=== PATIENT | male | born 1960 | race Caucasian/White ===

== ENCOUNTER 2016-09-28 10:49 | Emergency (ER) | payer OTHER ==
[~2016-09-28] VITALS: Ht 180.3 cm; Wt 82.0 kg
[~2016-09-28 10:49] MED LIST: ENOX40P SQ; HYDR10SO PO; Z.0.WALKERFRONT; Z.0.WHEELELR
[2016-09-28 10:52] VITALS: BP 152/115; PULSE 93; RESP 18; TEMP 98.1; O2SAT 99
--- NOTE | 2016-09-28 11:32 | PD ---
HPI Chief Complaint: Laceration/Skin Injury Time Seen by Provider: 11:32 Travel History International Travel<30 days: No Contact w/Intl Traveler<30days: No Traveled to known affect area: No History of Present Illness HPI 55-year-old male presents to the emergency Department with complaint of left index finger laceration that occurred this morning at approximately 3 or 4 AM December jacqueline shannon. Denies being up-to-date on his tetanus vaccination. Denies paresthesias, loss of sensation, decreased range of motion, decreased strength to the affected finger. Denies fever, chills, nausea, vomiting. Has applied pressure to control bleeding. Denies allergies. No other modifying factors or associated signs and symptoms. PFSH Past Medical History Arthritis: Yes Asthma: Yes ( A CHILD) Autoimmune Disease: No Bipolar Disorder: Yes Anxiety: No Depression: No Heart Rhythm Problems: No Cancer: No Cardiovascular Problems: No High Cholesterol: No Chemotherapy: No Chest Pain: No Congestive Heart Failure: No COPD: No Cerebrovascular Accident: No Diabetes: No Endocrine: No GERD: No Genitourinary: No Hiatal Hernia: No Immune Disorder: No Kidney Stones: No Musculoskeletal: No Neurologic: No Psychiatric: No Reproductive: No Respiratory: Yes Immunizations Current: Yes Migraines: No Radiation Therapy: No Renal Failure: No Seizures: No Sickle Cell Disease: No Sleep Apnea: No Thyroid Disease: No Ulcer: No Past Surgical History Abdominal Surgery: No AICD: No Arteriovenous Shunt: No Body Medical Devices: LEFT WRIST ORIF, LEFT ELBOW ORIF, LEFT ORBITAL REPAIR Cardiac Surgery: No Ear Surgery: No Endocrine Surgery: No Eye Surgery: Yes (LEFT ORBITAL REPAIR) Genitourinary Surgery: No Gynecologic Surgery: No Insulin Pump: No Joint Replacement: No Oral Surgery: No Pacemaker: No Thoracic Surgery: No Social History Alcohol Use: Yes Tobacco Use: Yes Substance Use: Yes (MARIJUANA) Allergies-Medications (Allergen,Severity, Reaction): Coded Allergies: No Known Allergies (Verified , 09/28/16) Reported Meds & Prescriptions Reported Meds & Active Scripts Active Keflex (Cephalexin) 500 Mg Cap 500 Mg PO Q8H 7 Days Review of Systems Except as stated in HPI: all other systems reviewed are Neg Physical Exam Narrative GENERAL: Well-nourished, well-developed male patient, in no acute distress SKIN: Warm and dry. Anterior aspects of left index finger with laceration in between the MCP and PIP joints; finger without erythema, edema; with full range of motion at all finger joints; sensory intact; less than 3 second cap refill; with good opposition. HEAD: Atraumatic. Normocephalic. EYES: Pupils equal and round. No scleral icterus. No injection or drainage. ENT: Mucosa pink and moist. Airway patent. NECK: Trachea midline. CARDIOVASCULAR: Regular rate. RESPIRATORY: No accessory muscle use. GASTROINTESTINAL: Flat. MUSCULOSKELETAL: No obvious deformities. No clubbing. No cyanosis. No edema. NEUROLOGICAL: Awake and alert. Oriented 3. No obvious cranial nerve deficits. Motor grossly within normal limits. Normal speech. PSYCHIATRIC: Appropriate mood and affect; insight and judgment normal. Data Data Last Documented VS Vital Signs Date Time Temp Pulse Resp B/P Pulse Ox O2 Delivery O2 Flow Rate FiO2 09/28/16 10:52 98.1 93 18 152/115 99 Orders Tetanus/Diphtheria Tox Adult (Tetanus/Di (09/28/16 11:45) Bupivacaine Pf 0.5% Inj (Marcaine Pf 0.5 (09/28/16 11:45) Lidocaine 1% Inj (50 Ml) (Xylocaine 1% I (09/28/16 11:45) MDM Medical Decision Making Medical Screen Exam Complete: Yes Emergency Medical Condition: Yes Medical Record Reviewed: Yes Differential Diagnosis Laceration, contusion, abrasion Narrative Course 55-year-old male with laceration to left index finger. See ARAMIS Hamlin's procedure note for laceration repair. Tetanus updated in the ER. Keflex and ibuprofen prescribed for home. Patient is medically cleared and stable for discharge. Discussed reasons to return to the emergency department. Instructed patient to follow up with primary care provider. Patient agrees with treatment plan. The patients vital signs are stable and the patient is stable for outpatient follow-up and treatment. Patient discharged home, stable and in no acute distress. Diagnosis Primary Impression: Laceration of finger of left hand Qualified Code: S61.219A - Laceration of finger of left hand, initial encounter Referrals: Primary Care Physician Patient Instructions: Care For Your Stitches (ED), Finger Laceration (ED), General Instructions Departure Forms: Tests/Procedures, Work Release Enter return to work date: Oct 01, 2016 Additional Instructions: Keep area clean and dry Limit left index finger activity to decrease risk of sutures coming undone Ibuprofen or Tylenol as directed and as needed for pain and inflammation Ice pack to area as needed to decrease pain Return to the emergency department or follow-up with her primary care provider in 7-10 days for suture removal Follow up with primary care provider Return to the emergency department immediately with worsening of symptoms, particularly if reddened streaks up or down the affected extremity from the suture site, fever, numbness/tingling in the affected extremity, loss of sensation in the affected extremity, severe swelling of the affected Med/Other Pt SpecificInfo: Prescription(s) given Scripts Cephalexin (Keflex)500 Mg Gpw194 Mg PO Q8H 7 Days Ref 0 Prov:Jenniffer Connor 09/28/16 Disposition: DISCHARGE HOME Condition: Stable Radha Mcneil Sep 28, 2016 11:32 sensation in the affected extremity, severe swelling of the affected Med/Other Pt SpecificInfo: Prescription(s) given Disposition: DISCHARGE HOME Condition: Stable Radha Mcneil Sep 28, 2016 11:32
[2016-09-28] MEDS ORDERED: BUPIVACAINE HCL PF 0.5% 10 ML VIAL INFIL ONE (11:45)
[2016-09-28] MEDS ORDERED: LIDOCAINE HCL 1% 50 ML VIAL INFIL ONE (11:45)
[2016-09-28] MEDS ORDERED: TETANUS/DIPHTHERIA TOXOID ADULT 0.5 ML VIAL IM ONE (11:45)
[2016-09-28] MEDS ORDERED: CEPH-460 PO (13:10)
--- NOTE | 2016-09-28 13:11 | PD ---
Physical Exam Date Seen by Provider: Sep 28, 2016 Time Seen by Provider: 13:09 Narrative I was asked by Radha Mcneil to repair laceration to the patient's left second finger. Please see her documentation for full history and physical. Data Data Last Documented VS Vital Signs Date Time Temp Pulse Resp B/P Pulse Ox O2 Delivery O2 Flow Rate FiO2 09/28/16 10:52 98.1 93 18 152/115 99 Orders Tetanus/Diphtheria Tox Adult (Tetanus/Di (09/28/16 11:45) Bupivacaine Pf 0.5% Inj (Marcaine Pf 0.5 (09/28/16 11:45) Lidocaine 1% Inj (50 Ml) (Xylocaine 1% I (09/28/16 11:45) MDM Medical Record Reviewed: Yes Supervised Visit with MAGDIEL: No Procedures Procedure Narrative LACERATION LOCATION: Left second finger LENGTH: 3 cm NUMBER OF STITCHES/SAMIR: 7 simple interrupted sutures REPAIR: The area of the laceration was prepped with Betadine and sterilely draped. The laceration was infiltrated with 1% lidocaine 0.5% Marcaine. The wound was copiously irrigated and explored without evidence of foreign body, tendon injury or neurovascular injury. The wound was closed using 4-0 Prolene. This was a single layer repair. A sterile dressing was applied. The patient was advised to keep the dressing clean and dry. Patient tolerated the procedure well. Diagnosis Primary Impression: Laceration of finger of left hand Qualified Code: S61.219A - Laceration of finger of left hand, initial encounter Referrals: Primary Care Physician Patient Instructions: General Instructions, Care For Your Stitches (ED), Finger Laceration (ED) Departure Forms: Work Release, Enter return to work date: Tests/Procedures Additional Instruction: Keep area clean and dry Limit left index finger activity to decrease risk of sutures coming undone Ibuprofen or Tylenol as directed and as needed for pain and inflammation Ice pack to area as needed to decrease pain Take antibiotic as directed until gone. This is $4 at [employer]. Return to the emergency department or follow-up with her primary care provider in 7-10 days for suture removal Follow up with primary care provider Return to the emergency department immediately with worsening of symptoms, particularly if reddened streaks up or down the affected extremity from the suture site, fever, numbness/tingling in the affected extremity, loss of sensation in the affected extremity, severe swelling of the affected Scripts Cephalexin (Keflex)500 Mg Qot027 Mg PO Q8H 7 Days Ref 0 Prov:Jenniffer Connor 09/28/16 Disposition: 01 DISCHARGE HOME Condition: Stable Jenniffer Connor Sep 28, 2016 13:11
== END 2016-09-28 13:20 | disposition home or self-care (01) ==
LOC: NEPB 10:49
DX: S61.211A Laceration without foreign body of left index finger without damage to nail, initial encounter (principal); J45.909 Unspecified asthma, uncomplicated; Z23 Encounter for immunization; Z72.0 Tobacco use; W26.0XXA Contact with knife, initial encounter; Y99.8 Other external cause status
CPT/HCPCS: 12002; 90471; 90714

== ENCOUNTER 2017-04-20 19:48 | Emergency (ER) | payer SELFPAY ==
[~2017-04-20] VITALS: Ht 271.8 cm; Wt 86.0 kg
[~2017-04-20 19:48] MED LIST changes: +CEPH-460 PO; -ENOX40P SQ; -HYDR10SO PO; -Z.0.WALKERFRONT; -Z.0.WHEELELR
[2017-04-20 19:51] VITALS: BP 149/91; PULSE 111; RESP 16; TEMP 100.2; O2SAT 95
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
[2017-04-20] MEDS ORDERED: SODIUM CHLOR 0.9% 1000 ML INJ 1,000 ML IV ONE (21:15)
[2017-04-20] MEDS ORDERED: DEXAMETHASONE SOD PHOS 4 MG/ML VIAL IV PUSH ONE (21:15)
[2017-04-20] MEDS ORDERED: KETOROLAC TROMETHAMINE 30 MG/ML (IVP) VIAL IV PUSH ONE (21:15)
[2017-04-20] MEDS ORDERED: AMPICILLIN-SULBACTAM INJ 1,500 MG in SODIUM CHLORIDE 0.9% INJ 100 ML IV ONE (21:15)
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
[2017-04-20] MEDS ORDERED: HYDR-3533 PO (21:45)
[2017-04-20] MEDS ORDERED: IBUP-232 PO (21:45)
[2017-04-20] MEDS ORDERED: AUGM875T3 PO (21:45)
[2017-04-20 22:06] VITALS: BP 135/87; TEMP 98.3
== END 2017-04-20 22:40 | disposition home or self-care (01) ==
LOC: NEPD 19:48
DX: S02.40CA Maxillary fracture, right side, initial encounter for closed fracture (principal); S02.40DA Maxillary fracture, left side, initial encounter for closed fracture; W22.8XXA Striking against or struck by other objects, initial encounter
CPT/HCPCS: 70450; 70486; 96361; 96365; 96375; 99285; J0295; J1100; J1885; J7030

== ENCOUNTER 2017-04-25 21:49 | Emergency (ER) | payer SELFPAY ==
[~2017-04-25 21:49] MED LIST changes: +AUGM875T3 PO; +HYDR-3533 PO; +IBUP-232 PO
[2017-04-25 21:50] VITALS: BP 166/94; PULSE 110; RESP 16; TEMP 100.8; O2SAT 100
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
[2017-04-26] MEDS ORDERED: IBUPROFEN 800 MG TAB ONE (02:36)
[2017-04-26] MEDS ORDERED: AZITHROMYCIN 250 MG TAB ONE (02:37)
[2017-04-26 02:46] VITALS: O2SAT 93
--- NOTE | 2017-04-26 02:58 | RADRPT ---
EXAM DATE/TIME: 04/26/2017 00:52 [place] COMPARISON: CHEST SINGLE AP, April 10, 2016, 21:28. INDICATIONS : Cough and congestion. MEDICAL HISTORY : None. SURGICAL HISTORY : None. ENCOUNTER: Initial ACUITY: 2 days PAIN SCORE: 3/10 LOCATION: Bilateral chest FINDINGS: PA and lateral views of the chest show bilateral interstitial infiltrates with a perihilar distributi on. Peribronchial thickening also observed particularly involving the left upper lobe. No effusions. Heart is normal in size. A degenerative spine. CONCLUSION: Bilateral perihilar interstitial infiltrates and peribronchial thickening suggesting viral pneumoniti siddhartha Croosk Jr., MD on April 26, 2017 at 1:11 Board Certified Radiologist. This report was verified electronically.
[2017-04-26 03:54] VITALS: BP 123/72; PULSE 85; RESP 18; TEMP 99.2; O2SAT 95
[2017-04-26 03:55] LABS: ALCOHOL LESS THAN 3 MG/DL (0-5)
[2017-04-26 04:19] LABS: AUTOMATED NEUTROPHIL # 9.7 TH/MM3 (1.8-7.7); BASOPHIL # 0.2 TH/MM3 (0-0.2); BASOPHIL % 1.7 % (0.0-2.0); EOSINOPHIL # 0.1 TH/MM3 (0-0.4); EOSINOPHIL % 0.9 % (0.0-4.0); HEMATOCRIT 36.5 % (39.0-51.0); HEMO FLAGS AUTO DIFF; LYMPH % 17.8 % (9.0-44.0); LYMPHOCYTE # 2.6 TH/MM3 (1.0-4.8); MEAN CELL VOLUME 89.5 FL (80.0-100.0); MEAN CORPUSCULAR HEMOGLOBIN 30.1 PG (27.0-34.0); MEAN CORPUSCULAR HGB CONC 33.7 % (32.0-36.0); MONO % 13.7 % (0.0-8.0); NEUT % 65.9 % (16.0-70.0); PLATELET COUNT 239 TH/MM3 (150-450); RED BLOOD COUNT 4.07 MIL/MM3 (4.50-5.90); RED CELL DISTRIBUTION WIDTH 14.4 % (11.6-17.2); WHITE BLOOD COUNT 14.7 TH/MM3 (4.0-11.0)
[2017-04-26 04:20] LABS: BANDS 2 % (0-6); NEUTROPHIL # MANUAL DIFF 9.4 TH/MM3 (1.8-7.7); POLYS (SEG NEUTROPHILS) 62 % (16-70)
[2017-04-26 04:23] LABS: PLATELET ESTIMATE SMEAR NORMAL (NORMAL); PLATELET MORPHOLOGY NORMAL (NORMAL); SCAN/DIFF FINAL DIFF MANUAL
[2017-04-26 04:24] LABS: ALKALINE PHOSPHATASE 68 U/L (45-117); ALT (GPT) 20 U/L (12-78); ANION GAP 9 MEQ/L (5-15); AST (GOT) 19 U/L (15-37); BICARBONATE 23.4 MEQ/L (21.0-32.0); BLOOD UREA NITROGEN 9 MG/DL (7-18); CHLORIDE 104 MEQ/L (98-107); GLOMERULAR FILTRATION RATE 105 ML/MIN (>89); POTASSIUM 3.4 MEQ/L (3.5-5.1); SODIUM (NA) 136 MEQ/L (136-145); TOTAL BILIRUBIN ADULT 0.5 MG/DL (0.2-1.0)
[2017-04-26] MEDS ORDERED: predniSONE 20 MG TAB PO ONE (04:30)
[2017-04-26] MEDS ORDERED: ALBU6.7H INH (04:42)
[2017-04-26] MEDS ORDERED: ZITH250T PO (04:42)
[2017-04-26] MEDS ORDERED: PRED-503 PO (04:42)
[2017-04-26 06:25] VITALS: BP 98/59; PULSE 68; RESP 16; TEMP 98.4; O2SAT 96
--- NOTE | 2017-04-26 15:42 | PD ---
Physical Exam Time Seen by Provider: 15:39 [facility]AM[facility] Paul has evaluated the patient and the patient will be discharged to follow-up at [facility] for detox. Data Data Last Documented VS Vital Signs Date Time Temp Pulse Resp B/P (MAP) Pulse Ox O2 Delivery O2 Flow Rate FiO2 04/26/17 14:26 04/26/17 06:25 98.4 68 16 96 Room Air 04/26/17 02:46 21 Orders Orders Chest, Pa & Lat (04/25/17 23:59) Psych Screen (04/26/17 00:09) Drug Screen, Random Urine (04/26/17 00:09) Alcohol (Ethanol) (04/26/17 00:09) Ibuprofen (Motrin) (04/26/17 02:36) Azithromycin (Zithromax) (04/26/17 02:37) Ceftriaxone Inj (Rocephin Inj) (04/26/17 02:37) Blood Culture (04/26/17 02:00) Blood Culture (04/26/17 01:45) Comprehensive Metabolic Panel (04/26/17 00:25) Complete Blood Count With Diff (04/26/17 01:45) Prednisone (Deltasone) (04/26/17 04:30) Diet Regular Basic (04/26/17 Breakfast) Labs Laboratory Tests Test 04/26/17 00:25 04/26/17 01:45 Blood Urea Nitrogen 9 MG/DL Creatinine 0.76 MG/DL Random Glucose 102 MG/DL Total Protein 6.9 GM/DL Albumin 2.6 GM/DL Calcium Level 8.3 MG/DL Alkaline Phosphatase 68 U/L Aspartate Amino Transf (AST/SGOT) 19 U/L Alanine Aminotransferase (ALT/SGPT) 20 U/L Total Bilirubin 0.5 MG/DL Sodium Level 136 MEQ/L Potassium Level 3.4 MEQ/L Chloride Level 104 MEQ/L Carbon Dioxide Level 23.4 MEQ/L Anion Gap 9 MEQ/L Estimat Glomerular Filtration Rate 105 ML/MIN Urine Opiates Screen NEG Urine Barbiturates Screen NEG Urine Amphetamines Screen NEG Urine Benzodiazepines Screen POS Urine Cocaine Screen POS Urine Cannabinoids Screen POS Ethyl Alcohol Level LESS THAN 3 MG/DL White Blood Count 14.7 TH/MM3 Red Blood Count 4.07 MIL/MM3 Hemoglobin 12.3 GM/DL Hematocrit 36.5 % Mean Corpuscular Volume 89.5 FL Mean Corpuscular Hemoglobin 30.1 PG Mean Corpuscular Hemoglobin Concent 33.7 % Red Cell Distribution Width 14.4 % Platelet Count 239 TH/MM3 Mean Platelet Volume 7.3 FL Neutrophils (%) (Auto) 65.9 % Lymphocytes (%) (Auto) 17.8 % Monocytes (%) (Auto) 13.7 % Eosinophils (%) (Auto) 0.9 % Basophils (%) (Auto) 1.7 % Neutrophils # (Auto) 9.7 TH/MM3 Lymphocytes # (Auto) 2.6 TH/MM3 Monocytes # (Auto) 2.0 TH/MM3 Eosinophils # (Auto) 0.1 TH/MM3 Basophils # (Auto) 0.2 TH/MM3 CBC Comment AUTO DIFF Neutrophils % (Manual) 62 % Band Neutrophils % 2 % Lymphocytes % 27 % Monocytes % 9 % Neutrophils # (Manual) 9.4 TH/MM3 Differential Comment FINAL DIFF MANUAL Atypical Lymphocytes % Platelet Estimate NORMAL Platelet Morphology Comment NORMAL Red Cell Morphology Comment NORMAL MDM Supervised Visit with [facility]: No Narrative Course [facility] Collins has evaluated the patient and the patient will be discharged home. Patient contracts safety. Denies suicidal or homicidal ideations. Patient will follow up [facility] for detox. Patient will be provided community resource packet to [facility] for follow-up. Has friends and family for support. Patient is medically cleared for discharge. Diagnosis Primary Impression: Medical clearance for psychiatric admission Additional Impressions: Malingering Polysubstance abuse interstitial pulmonary infiltrates Referrals: [facility] (Out patient) Primary Care Physician [facility] Patient Instructions: Community Acquired Pneumonia (ED), General Instructions, Polysubstance Abuse (ED) Additional Instruction: Contract safety to your self and others Stop using drugs Follow-up with psychiatry Follow-up with primary care provider [facility] Return to the emergency department immediately with worsening of symptoms Use Albuterol inhaler as prescribed Take oral steroids as prescribed and complete full course [id number] decongestants or antihistamines as directed and as needed for symptom management Your cough can last 4-6 weeks Drink plenty of fluids to prevent dehydration Use hot air humidifier to decrease cough exacerbation Turn off ceiling fans and sleep with head of bed elevated Avoid triggers such as second hand smoke, dust, known allergens Follow-up with your primary care provider Return to the emergency department immediately with worsening of symptoms Med/Other Pt SpecificInfo: Prescription(s) given Scripts Azithromycin (Zithromax) 250 Mg Tab 250 MG PO DIRECTED for Infection, #6 TAB 0 Refills Take 2 tabs (500 mg) on day 1 then 1 tab daily x 4 days. Prov: Bennett Beard MD 04/26/17 Albuterol 6.7 GM Inh (Proventil Hfa 6.7 GM Inh) 90 Mcg/Act Aer 1 PUFF INH Q4H Y for SHORTNESS OF BREATH, #1 INHALER 0 Refills Prov: Bennett Beard MD 04/26/17 Prednisone (Deltasone) 20 Mg Tab 20 MG PO TID for 5 Days, #90 TAB 0 Refills Prov: Bennett Beard MD 04/26/17 Disposition: 01 DISCHARGE HOME Condition: Stable Radha Mcneil Apr 26, 2017 15:42
--- NOTE | 2017-04-26 15:45 | PD ---
History of Present Illness Chief Complaint: Psychiatric Symptoms Time Seen by Provider: 15:50 Travel History International Travel<30 Days: No Contact w/Intl Traveler<30days: No Known affected area: No History of Present Illness: 56-year-old male presents with history of heroin abuse, stating he is suicidal unless he is treated for his multiyear history of drug abuse. Patient was seen at [facility] and they were "concerned" about his cold symptoms and told him to come to [place] for medical clearance. Patient states he loves life that he would rather be than live the way he has been. At the time of this physician's interview, the patient continues to report that he wants detox at [facility]. He also has a positive toxicology screen for benzodiazepines, cocaine and cannabis. He denies suicidal or homicidal ideation , plan or intent at this time. However, this physician feels the patient is highly manipulative and may act out if he does not feel he is getting his way. Still, this physician cannot provide adequate evaluation and treatment by giving into the patient's manipulations, despite the risks involved. Patient is not psychotic and should be responsible for his own actions. PFSH Past Medical History Arthritis: Yes Asthma: Yes ( A CHILD) Autoimmune Disease: No Bipolar Disorder: Yes Anxiety: No Depression: No Heart Rhythm Problems: No Cancer: No Cardiovascular Problems: No High Cholesterol: No Chemotherapy: No Chest Pain: No Congestive Heart Failure: No COPD: No Cerebrovascular Accident: No Diabetes: No Diminished Hearing: No Endocrine: No GERD: No Genitourinary: No Hiatal Hernia: No Immune Disorder: No Implanted Vascular Access Dvce: Yes Kidney Stones: No Musculoskeletal: No Neurologic: No Psychiatric: No Reproductive: No Respiratory: Yes Immunizations Current: Yes Migraines: No Radiation Therapy: No Renal Failure: No Seizures: No Sickle Cell Disease: No Sleep Apnea: No Thyroid Disease: No Ulcer: No Tetanus Vaccination: Unknown Influenza Vaccination: No Past Surgical History Abdominal Surgery: No AICD: No Arteriovenous Shunt: No Body Medical Devices: LEFT WRIST ORIF, LEFT ELBOW ORIF, LEFT ORBITAL REPAIR Cardiac Surgery: No Ear Surgery: No Endocrine Surgery: No Eye Surgery: Yes (LEFT ORBITAL REPAIR) Genitourinary Surgery: No Gynecologic Surgery: No Insulin Pump: No Joint Replacement: No Oral Surgery: No Pacemaker: No Thoracic Surgery: No Other Surgery: Yes Psychiatric History Psychiatric History Hx Psychiatric Treatment: DENIES History of Inpatient Treatment: No Guns or firearms in home: No Social History Hx Alcohol Use: Yes Hx Tobacco Use: Yes Hx Substance Use: Yes (POLYSUBSTANCE) Substance Use Type: Alcohol, Crack, Marijuana, Amphetamines-Stimulants, Prescription Medications, Benzos (Valium,Xanax), Heroin, Cocaine, Synth Opiates- Pain Pills Hx of Substance Use Treatment: No Allergies-Medications (Allergen,Severity, Reaction): Coded Allergies: No Known Allergies (Verified , 04/25/17) Reported Meds & Prescriptions Reported Meds & Active Scripts Active Zithromax (Azithromycin) 250 Mg Tab 250 Mg PO DIRECTED Take 2 tabs (500 mg) on day 1 then 1 tab daily x 4 days. Proventil Hfa 6.7 GM Inh (Albuterol Sulfate) 90 Mcg/Act Aer 1 Puff INH Q4H PRN Deltasone (Prednisone) 20 Mg Tab 20 Mg PO TID 5 Days Lortab (Hydrocodone-Acetaminophen) 5-325 Mg Tab 1 Tab PO Q6H PRN Ibuprofen 600 Mg Tab 600 Mg PO Q8HR PRN Augmentin (Amoxicillin-Clavulanate) 875-125 Mg Tab 1 Tab PO BID 10 Days Keflex (Cephalexin) 500 Mg Cap 500 Mg PO Q8H 7 Days Review of Systems Except as stated in HPI: all other systems reviewed are Neg Exam Alert: Yes [place]: Person, Place, Date, Situation Mood: Calm Affect: Appropriate Speech: Clear, Logical Eye Contact: Normal Memory Intact: Immediate, Recent, Remote Delusions: No Insight/Judgement Adequate adequate MDM Medical Decision Making Medical Record Reviewed: Yes Assessment/Plan Patient interviewed at bedside, medical record reviewed and case discussed with nurse, Muna. Patient continues to have significant issue with substance abuse problem. This physician feels it is important for the patient to take responsibility for his actions and to seek drug rehabilitation as opposed to psychiatric admission. Patient's threats of suicidality aren't ongoing risk but are unpredictable and unavoidable. This physician is recommending the patient go to [facility] for further treatment and the patient agrees. We are providing him with bus passes. Orders Orders Chest, Pa & Lat (04/25/17 23:59) Psych Screen (04/26/17 00:09) Drug Screen, Random Urine (04/26/17 00:09) Alcohol (Ethanol) (04/26/17 00:09) Ibuprofen (Motrin) (04/26/17 02:36) Azithromycin (Zithromax) (04/26/17 02:37) Ceftriaxone Inj (Rocephin Inj) (04/26/17 02:37) Blood Culture (04/26/17 02:00) Blood Culture (04/26/17 01:45) Comprehensive Metabolic Panel (04/26/17 00:25) Complete Blood Count With Diff (04/26/17 01:45) Prednisone (Deltasone) (04/26/17 04:30) Diet Regular Basic (04/26/17 Breakfast) Results Vital Signs Date Time Temp Pulse Resp B/P (MAP) Pulse Ox O2 Delivery O2 Flow Rate FiO2 04/26/17 14:26 04/26/17 06:25 98.4 68 16 98/59 (72) 96 Room Air 04/26/17 03:57 18 04/26/17 03:54 99.2 85 18 123/72 (89) 95 Room Air 04/26/17 02:46 93 21 04/25/17 23:49 16 04/25/17 21:50 100.8 110 16 166/94 (118) 100 Laboratory Tests Test 04/26/17 00:25 04/26/17 01:45 Blood Urea Nitrogen 9 Creatinine 0.76 Random Glucose 102 Total Protein 6.9 Albumin 2.6 Calcium Level 8.3 Alkaline Phosphatase 68 Aspartate Amino Transf (AST/SGOT) 19 Alanine Aminotransferase (ALT/SGPT) 20 Total Bilirubin 0.5 Sodium Level 136 Potassium Level 3.4 Chloride Level 104 Carbon Dioxide Level 23.4 Anion Gap 9 Estimat Glomerular Filtration Rate 105 Urine Opiates Screen NEG Urine Barbiturates Screen NEG Urine Amphetamines Screen NEG Urine Benzodiazepines Screen POS Urine Cocaine Screen POS Urine Cannabinoids Screen POS Ethyl Alcohol Level LESS THAN 3 White Blood Count 14.7 Red Blood Count 4.07 Hemoglobin 12.3 Hematocrit 36.5 Mean Corpuscular Volume 89.5 Mean Corpuscular Hemoglobin 30.1 Mean Corpuscular Hemoglobin Concent 33.7 Red Cell Distribution Width 14.4 Platelet Count 239 Mean Platelet Volume 7.3 Neutrophils (%) (Auto) 65.9 Lymphocytes (%) (Auto) 17.8 Monocytes (%) (Auto) 13.7 Eosinophils (%) (Auto) 0.9 Basophils (%) (Auto) 1.7 Neutrophils # (Auto) 9.7 Lymphocytes # (Auto) 2.6 Monocytes # (Auto) 2.0 Eosinophils # (Auto) 0.1 Basophils # (Auto) 0.2 CBC Comment AUTO DIFF Neutrophils % (Manual) 62 Band Neutrophils % 2 Lymphocytes % 27 Monocytes % 9 Neutrophils # (Manual) 9.4 Differential Comment FINAL DIFF MANUAL Atypical Lymphocytes Platelet Estimate NORMAL Platelet Morphology Comment NORMAL Red Cell Morphology Comment NORMAL Date/Time Source Procedure Growth Status 04/26/17 02:00 Blood Peripheral Aerobic Blood Culture Pending Received 04/26/17 02:00 Blood Peripheral Anaerobic Blood Culture Pending Received Diagnosis Primary Impression: Cocaine abuse Additional Impressions: Benzodiazepine abuse Cannabis abuse Prescriptions Azithromycin (Zithromax) 250 Mg Tab 250 MG PO DIRECTED for Infection, #6 TAB 0 Refills Take 2 tabs (500 mg) on day 1 then 1 tab daily x 4 days. Prov: Bennett Beard MD 04/26/17 Albuterol 6.7 GM Inh (Proventil Hfa 6.7 GM Inh) 90 Mcg/Act Aer 1 PUFF INH Q4H Y for SHORTNESS OF BREATH, #1 INHALER 0 Refills Prov: Bennett Beard MD 04/26/17 Prednisone (Deltasone) 20 Mg Tab 20 MG PO TID for 5 Days, #90 TAB 0 Refills Prov: Bennett Beard MD 04/26/17 Condition: Stable Problem Qualifiers Elias Harvey MD Apr 26, 2017 15:45
[2017-04-26 16:00] VITALS: BP 102/68; TEMP 98.2
== END 2017-04-26 16:07 | disposition home or self-care (01) ==
LOC: NEPD 21:49 → NEPJ 04-26 16:07
DX: F14.10 Cocaine abuse, uncomplicated (principal); F12.10 Cannabis abuse, uncomplicated; F13.10 Sedative, hypnotic or anxiolytic abuse, uncomplicated; R91.8 Other nonspecific abnormal finding of lung field; Z72.0 Tobacco use; Z59.0 Homelessness
CPT/HCPCS: 71020; 80053; 80307; 85007; 85027; 87040; 94640; 94664; 96365; 99284; J0696; J7512

== ENCOUNTER 2017-05-08 01:25 | Emergency (ER) | payer SELFPAY ==
[~2017-05-08] VITALS: Ht 180.3 cm; Wt 88.0 kg
[~2017-05-08 01:25] MED LIST changes: +ALBU6.7H INH; +PRED-503 PO; +ZITH250T PO
[2017-05-08 01:28] VITALS: BP 116/79; PULSE 103; RESP 16; TEMP 98.5; O2SAT 98
--- NOTE | 2017-05-08 02:48 | PD ---
HPI Chief Complaint: Alcohol/Drug Intoxication Time Seen by Provider: 02:42 Travel History International Travel<30 days: No Contact w/Intl Traveler<30days: No Traveled to known affect area: No History of Present Illness HPI 56-year-old white male presents to emergency department stating that he feels that he may have snorted some heroin that may been adulterated. He states that he had been living in a sober living facility and relapsed. He states that he felt hot and flushed all over. He had some dizziness and some blurred vision but that did resolve. PFSH Past Medical History Arthritis: Yes Asthma: Yes ( A CHILD) Autoimmune Disease: No Bipolar Disorder: Yes Anxiety: No Depression: No Heart Rhythm Problems: No Cancer: No Cardiovascular Problems: No High Cholesterol: No Chemotherapy: No Chest Pain: No Congestive Heart Failure: No COPD: No Cerebrovascular Accident: No Diabetes: No Diminished Hearing: No Endocrine: No GERD: No Genitourinary: No Hiatal Hernia: No Immune Disorder: No Implanted Vascular Access Dvce: Yes Kidney Stones: No Musculoskeletal: No Neurologic: No Psychiatric: No Reproductive: No Respiratory: Yes Immunizations Current: Yes Migraines: No Radiation Therapy: No Renal Failure: No Seizures: No Sickle Cell Disease: No Sleep Apnea: No Thyroid Disease: No Ulcer: No Tetanus Vaccination: < 5 Years Past Surgical History Abdominal Surgery: No AICD: No Arteriovenous Shunt: No Body Medical Devices: LEFT WRIST ORIF, LEFT ELBOW ORIF, LEFT ORBITAL REPAIR Cardiac Surgery: No Ear Surgery: No Endocrine Surgery: No Eye Surgery: Yes (LEFT ORBITAL REPAIR) Genitourinary Surgery: No Gynecologic Surgery: No Insulin Pump: No Joint Replacement: No Oral Surgery: No Pacemaker: No Thoracic Surgery: No Other Surgery: Yes Social History Alcohol Use: Yes (daily) Tobacco Use: Yes Substance Use: Yes (herion, marijaunia, crack) Allergies-Medications (Allergen,Severity, Reaction): Coded Allergies: No Known Allergies (Verified , 04/25/17) Reported Meds & Prescriptions Reported Meds & Active Scripts Active Zithromax (Azithromycin) 250 Mg Tab 250 Mg PO DIRECTED Take 2 tabs (500 mg) on day 1 then 1 tab daily x 4 days. Proventil Hfa 6.7 GM Inh (Albuterol Sulfate) 90 Mcg/Act Aer 1 Puff INH Q4H PRN Deltasone (Prednisone) 20 Mg Tab 20 Mg PO TID 5 Days Lortab (Hydrocodone-Acetaminophen) 5-325 Mg Tab 1 Tab PO Q6H PRN Ibuprofen 600 Mg Tab 600 Mg PO Q8HR PRN Augmentin (Amoxicillin-Clavulanate) 875-125 Mg Tab 1 Tab PO BID 10 Days Keflex (Cephalexin) 500 Mg Cap 500 Mg PO Q8H 7 Days Review of Systems Except as stated in HPI: all other systems reviewed are Neg Physical Exam Narrative GENERAL: Well-developed, well-nourished in no acute distress. Nontoxic appearing. HEAD: Normocephalic, atraumatic. EYES: Pupils equal round and reactive. Extraocular motions intact. No scleral icterus. No injection or drainage. ENT: TMs clear without erythema. The external auditory canals clear. Nose: clear . Posterior pharynx is pink and moist. No tonsillar edema or exudate. Uvula midline. Airway patent. NECK: Trachea midline.Supple, nontender, moves head freely. No central bony tenderness or spasm. CARDIOVASCULAR: Regular rate and rhythm without murmurs, gallops, or rubs. RESPIRATORY: Clear to auscultation. Breath sounds equal bilaterally. No wheezes , rales, or rhonchi. GASTROINTESTINAL: Abdomen soft, non-tender, nondistended. No hepato-splenomegaly , or palpable masses. No guarding. EXTREMITIES: No clubbing, cyanosis, or edema. No joint tenderness, effusion, or edema noted. BACK: Nontender without deformity or crepitance. No flank tenderness. Data Data Last Documented VS Vital Signs Date Time Temp Pulse Resp B/P (MAP) Pulse Ox O2 Delivery O2 Flow Rate FiO2 05/08/17 01:28 98.5 103 16 116/79 (91) 98 Room Air MDM Medical Decision Making Medical Screen Exam Complete: Yes Emergency Medical Condition: Yes Medical Record Reviewed: Yes Differential Diagnosis Differential diagnoses: Alcohol intoxication, substance abuse, electrolyte abnormality, malingering Narrative Course The patient has been medically cleared. I suspect the patient may have had some heroin that may then adulterated but he is stable now. I suspect he is now looking for a place to stay because he has been kicked out of his sober living facility. Diagnosis Primary Impression: Polysubstance abuse Patient Instructions: General Instructions Additional Instructions: Rest. Increase fluids. Avoid alcohol. Avoid illegal substances. [facility]-up with [facility] for [facility]. Do not operate a car or any heavy machinery under the influence of alcohol or drugs. Follow-up with a medical doctor this week. Return to the ER for emergencies Med/Other Pt SpecificInfo: No Meds Exist/No RX given Disposition: 01 DISCHARGE HOME Condition: Stable Klaus Cuenca May 08, 2017 02:48
== END 2017-05-08 02:52 | disposition home or self-care (01) ==
LOC: NEPD 01:25
DX: F19.10 Other psychoactive substance abuse, uncomplicated (principal); Z72.0 Tobacco use
CPT/HCPCS: 99283

== ENCOUNTER 2017-05-12 21:53 | Emergency (ER) | payer SELFPAY ==
[~2017-05-12] VITALS: Ht 182.9 cm; Wt 85.0 kg
[2017-05-12 22:00] VITALS: BP 116/77; PULSE 106; RESP 12; TEMP 98.6; O2SAT 88
[2017-05-12] MEDS ORDERED: NALOXONE HCL 2 MG/2 ML VIAL ONE (22:01)
[2017-05-12] MEDS ORDERED: SODIUM CHLOR 0.9% 1000 ML INJ 1,000 ML IV ONE (22:14)
[2017-05-12] MEDS ORDERED: SODIUM CHLORIDE 0.9% FLUSH 10 ML FLUSH IVF PRN (22:15)
[2017-05-12 22:20] VITALS: RESP 24; O2SAT 94
--- NOTE | 2017-05-12 22:26 | PD ---
HPI Chief Complaint: OD/ Ingestion Time Seen by Provider: 21:59 Travel History International Travel<30 days: No Contact w/Intl Traveler<30days: No Traveled to known affect area: No History of Present Illness HPI The patient is a 56-year-old male who presents to the emergency department via EMS after he was found on the ground in the bathroom at a half-way house. According to EMS the patient had poor respiratory effort and was hard to arouse when they arrived. They administered Narcan 0.4 mg intravenously and the patient did awaken to GCS of 15. They do note the patient had a needle next him on the bathroom floor. The patient does have a history of drug abuse and states he may have relapsed since being at the half-way house. However, he will not disclose what type of drug was in the needle in regards to heroin versus long-acting opiate. EMS does state the patient was hypoxic upon arrival with an O2 sat in the 80s. The patient denies any current chest pain or shortness of breath, but does have to be re-aroused during questioning. PFSH Past Medical History Arthritis: Yes Asthma: Yes ( A CHILD) Autoimmune Disease: No Bipolar Disorder: Yes Anxiety: No Depression: No Heart Rhythm Problems: No Cancer: No Cardiovascular Problems: No High Cholesterol: No Chemotherapy: No Chest Pain: No Congestive Heart Failure: No COPD: No Cerebrovascular Accident: No Diabetes: No Diminished Hearing: No Endocrine: No GERD: No Genitourinary: No Hiatal Hernia: No Immune Disorder: No Implanted Vascular Access Dvce: Yes Kidney Stones: No Musculoskeletal: No Neurologic: No Psychiatric: No Reproductive: No Respiratory: Yes Immunizations Current: Yes Migraines: No Radiation Therapy: No Renal Failure: No Seizures: No Sickle Cell Disease: No Sleep Apnea: No Thyroid Disease: No Ulcer: No Past Surgical History Abdominal Surgery: No AICD: No Arteriovenous Shunt: No Body Medical Devices: LEFT WRIST ORIF, LEFT ELBOW ORIF, LEFT ORBITAL REPAIR Cardiac Surgery: No Ear Surgery: No Endocrine Surgery: No Eye Surgery: Yes (LEFT ORBITAL REPAIR) Genitourinary Surgery: No Gynecologic Surgery: No Insulin Pump: No Joint Replacement: No Oral Surgery: No Pacemaker: No Thoracic Surgery: No Other Surgery: Yes Social History Alcohol Use: Yes (daily) Tobacco Use: Yes Substance Use: Yes (herion, marijaunia, crack) Allergies-Medications (Allergen,Severity, Reaction): Coded Allergies: No Known Allergies (Verified , 04/25/17) Reported Meds & Prescriptions Reported Meds & Active Scripts Active No Active Prescriptions or Reported Medications Review of Systems Except as stated in HPI: all other systems reviewed are Neg Neurologic: Positive: Change in Mentation Psychiatric: Positive: Substance Abuse Physical Exam Narrative GENERAL: 56-year-old male who is somewhat drowsy upon arrival. SKIN: Focused skin assessment warm/dry. HEAD: Atraumatic. Normocephalic. EYES: Pupils equal and round. Pinpoint pupils bilaterally. ENT: No nasal bleeding or discharge. Mucous membranes pink and moist. NECK: Trachea midline. No JVD. CARDIOVASCULAR: Regular, tachycardic with a heart rate of 105. RESPIRATORY: No accessory muscle use. Rhonchi in the bases bilaterally. Abdomen: Soft, nontender, no rebound tenderness, guarding, rigidity. MUSCULOSKELETAL: No obvious deformities. No clubbing. No cyanosis. No edema. NEUROLOGICAL: Drowsy but arousable. Follow simple commands. PSYCHIATRIC: Appropriate mood and affect; insight and judgment normal. Data Data Last Documented VS Vital Signs Date Time Temp Pulse Resp B/P (MAP) Pulse Ox O2 Delivery O2 Flow Rate FiO2 05/12/17 22:53 102 14 126/80 (95) 91 Nasal Cannula 3.00 05/12/17 22:00 98.6 Orders Orders Naloxone Inj (Narcan Inj) (05/12/17 22:01) Complete Blood Count With Diff (05/12/17 22:14) Comprehensive Metabolic Panel (05/12/17 22:14) Chest, Single Ap (05/12/17 22:14) Iv Access Insert/Monitor (05/12/17 22:14) Ecg Monitoring (05/12/17 22:14) Oximetry (05/12/17 22:14) Sodium Chloride 0.9% Flush (Ns Flush) (05/12/17 22:15) Sodium Chlor 0.9% 1000 Ml Inj (Ns 1000 M (05/12/17 22:14) Drug Screen, Random Urine (05/12/17 22:14) Alcohol (Ethanol) (05/12/17 22:14) Salicylates (Aspirin) (05/12/17 22:14) Tylenol (Acetaminophen) (05/12/17 22:14) Naloxone Inj (Narcan Inj) (05/12/17 23:00) Labs Laboratory Tests Test 05/12/17 22:10 White Blood Count 14.3 TH/MM3 Red Blood Count 4.42 MIL/MM3 Hemoglobin 13.6 GM/DL Hematocrit 40.7 % Mean Corpuscular Volume 92.0 FL Mean Corpuscular Hemoglobin 30.7 PG Mean Corpuscular Hemoglobin Concent 33.4 % Red Cell Distribution Width 14.9 % Platelet Count 250 TH/MM3 Mean Platelet Volume 7.9 FL Neutrophils (%) (Auto) 43.7 % Lymphocytes (%) (Auto) 42.5 % Monocytes (%) (Auto) 11.3 % Eosinophils (%) (Auto) 1.9 % Basophils (%) (Auto) 0.6 % Neutrophils # (Auto) 6.3 TH/MM3 Lymphocytes # (Auto) 6.1 TH/MM3 Monocytes # (Auto) 1.6 TH/MM3 Eosinophils # (Auto) 0.3 TH/MM3 Basophils # (Auto) 0.1 TH/MM3 CBC Comment AUTO DIFF Blood Urea Nitrogen 19 MG/DL Creatinine 1.02 MG/DL Random Glucose 153 MG/DL Total Protein 7.1 GM/DL Albumin 3.1 GM/DL Calcium Level 8.8 MG/DL Alkaline Phosphatase 74 U/L Aspartate Amino Transf (AST/SGOT) 52 U/L Alanine Aminotransferase (ALT/SGPT) 80 U/L Total Bilirubin 0.2 MG/DL Sodium Level 141 MEQ/L Potassium Level 3.9 MEQ/L Chloride Level 106 MEQ/L Carbon Dioxide Level 27.8 MEQ/L Anion Gap 7 MEQ/L Estimat Glomerular Filtration Rate 75 ML/MIN Acetaminophen Level LESS THAN 2.0 MCG/ML Ethyl Alcohol Level LESS THAN 3 MG/DL [facility] Medical Decision Making Medical Screen Exam Complete: Yes Emergency Medical Condition: Yes Medical Record Reviewed: Yes Interpretation(s) EKG reveals sinus tachycardia with a heart rate of 105. Chest x-ray reveals mild persistent but clearly improving interstitial prominence. Last Impressions Chest X-Ray 05/12/172213 Signed Impressions: Service Date/Time: May 22:22 - CONCLUSION: Mild persistent but clearly improving interstitial prominence. Javi Callahan MD Laboratory Tests Test 05/12/17 22:10 White Blood Count 14.3 TH/MM3 Red Blood Count 4.42 MIL/MM3 Hemoglobin 13.6 GM/DL Hematocrit 40.7 % Mean Corpuscular Volume 92.0 FL Mean Corpuscular Hemoglobin 30.7 PG Mean Corpuscular Hemoglobin Concent 33.4 % Red Cell Distribution Width 14.9 % Platelet Count 250 TH/MM3 Mean Platelet Volume 7.9 FL Neutrophils (%) (Auto) 43.7 % Lymphocytes (%) (Auto) 42.5 % Monocytes (%) (Auto) 11.3 % Eosinophils (%) (Auto) 1.9 % Basophils (%) (Auto) 0.6 % Neutrophils # (Auto) 6.3 TH/MM3 Lymphocytes # (Auto) 6.1 TH/MM3 Monocytes # (Auto) 1.6 TH/MM3 Eosinophils # (Auto) 0.3 TH/MM3 Basophils # (Auto) 0.1 TH/MM3 CBC Comment AUTO DIFF Blood Urea Nitrogen 19 MG/DL Creatinine 1.02 MG/DL Random Glucose 153 MG/DL Total Protein 7.1 GM/DL Albumin 3.1 GM/DL Calcium Level 8.8 MG/DL Alkaline Phosphatase 74 U/L Aspartate Amino Transf (AST/SGOT) 52 U/L Alanine Aminotransferase (ALT/SGPT) 80 U/L Total Bilirubin 0.2 MG/DL Sodium Level 141 MEQ/L Potassium Level 3.9 MEQ/L Chloride Level 106 MEQ/L Carbon Dioxide Level 27.8 MEQ/L Anion Gap 7 MEQ/L Estimat Glomerular Filtration Rate 75 ML/MIN Acetaminophen Level LESS THAN 2.0 MCG/ML Ethyl Alcohol Level LESS THAN 3 MG/DL Differential Diagnosis Differential diagnosis includes opiate overdose, polysubstance abuse, accidental overdose, intentional overdose. Narrative Course IV was established, labs are drawn and sent, and the patient was placed on cardiac telemetry monitoring and continuous pulse oximetry monitoring. EKG was ordered and interpreted. The patient did start to decline mentally, therefore, was administered another Narcan 2 mg intravenously which aroused the patient. Chest x-ray was obtained. The patient was placed on O2 via nasal cannula at 3 L with O2 saturation of 90%. The patient was then monitored in the emergency department. Diagnosis Primary Impression: Opiate overdose Scripts No Active Prescriptions or Reported Meds Condition: Stable Demetris Gómez MD May 12, 2017 22:26
[2017-05-12 22:31] LABS: AUTOMATED NEUTROPHIL # 6.3 TH/MM3 (1.8-7.7); BASOPHIL # 0.1 TH/MM3 (0-0.2); BASOPHIL % 0.6 % (0.0-2.0); EOSINOPHIL # 0.3 TH/MM3 (0-0.4); EOSINOPHIL % 1.9 % (0.0-4.0); HEMATOCRIT 40.7 % (39.0-51.0); LYMPH % 42.5 % (9.0-44.0); LYMPHOCYTE # 6.1 TH/MM3 (1.0-4.8); MEAN CORPUSCULAR HEMOGLOBIN 30.7 PG (27.0-34.0); MEAN CORPUSCULAR HGB CONC 33.4 % (32.0-36.0); MONO % 11.3 % (0.0-8.0); NEUT % 43.7 % (16.0-70.0); PLATELET COUNT 250 TH/MM3 (150-450); RED BLOOD COUNT 4.42 MIL/MM3 (4.50-5.90); RED CELL DISTRIBUTION WIDTH 14.9 % (11.6-17.2); WHITE BLOOD COUNT 14.3 TH/MM3 (4.0-11.0)
[2017-05-12 22:32] LABS: HEMO FLAGS AUTO DIFF
[2017-05-12 22:53] VITALS: BP 126/80; PULSE 102; RESP 14; O2SAT 91
--- NOTE | 2017-05-12 22:57 | RADRPT ---
EXAM DATE/TIME: 05/12/2017 22:22 [facility] COMPARISON: CHEST PA & LAT, April 26, 2017, 0:52. CHEST SINGLE AP, April 10, 2016, 21:28. INDICATIONS : Shortness of breath. MEDICAL HISTORY : None. SURGICAL HISTORY : None. ENCOUNTER: Initial ACUITY: 1 day PAIN SCORE: Non-responsive. LOCATION: Bilateral chest FINDINGS: The heart size is normal. There is slight prominence of interstitium. The interstitial consolidations have clearly improved. No alveolar consolidation is seen. No effusion is seen. CONCLUSION: Mild persistent but clearly improving interstitial prominence. Javi Callahan MD on May 12, 2017 at 22:54 Board Certified Radiologist. This report was verified electronically.
[2017-05-12] MEDS ORDERED: NALOXONE HCL 2 MG/2 ML VIAL IV PUSH ONE (23:00)
[2017-05-12 23:02] LABS: ALT (GPT) 80 U/L (12-78)
[2017-05-12 23:05] LABS: ALKALINE PHOSPHATASE 74 U/L (45-117); TOTAL BILIRUBIN ADULT 0.2 MG/DL (0.2-1.0)
[2017-05-12 23:12] LABS: ANION GAP 7 MEQ/L (5-15); AST (GOT) 52 U/L (15-37); BICARBONATE 27.8 MEQ/L (21.0-32.0); BLOOD UREA NITROGEN 19 MG/DL (7-18); CHLORIDE 106 MEQ/L (98-107); GLOMERULAR FILTRATION RATE 75 ML/MIN (>89); POTASSIUM 3.9 MEQ/L (3.5-5.1); SODIUM (NA) 141 MEQ/L (136-145)
[2017-05-12 23:13] LABS: ACETAMINOPHEN LESS THAN 2.0 MCG/ML (10.0-30.0); ALCOHOL LESS THAN 3 MG/DL (0-5)
[2017-05-13 00:39] LABS: BANDS 5 % (0-6); EOSINOPHILS 1 % (0-4); NEUTROPHIL # MANUAL DIFF 7.9 TH/MM3 (1.8-7.7); PLATELET ESTIMATE SMEAR NORMAL (NORMAL); PLATELET MORPHOLOGY NORMAL (NORMAL); POLYS (SEG NEUTROPHILS) 50 % (16-70); SCAN/DIFF FINAL DIFF MANUAL; WBC DIFF SAMPLE 100
[2017-05-13 00:40] LABS: TOXIC GRANULATION 1+ (NORMAL)
[2017-05-13 02:17] VITALS: BP 118/76; PULSE 109; RESP 19; O2SAT 3; O2SAT 97
[2017-05-13 05:59] VITALS: BP 126/76; PULSE 112; RESP 14; O2SAT 96
--- NOTE | 2017-05-13 13:10 | EKG ---
Date Performed: 05/12/2017 Time Performed: 22:02:25 PTAGE: 56 years EKG: SINUS TACHYCARDIA ARM LEADS REVERSED ABNORMAL RHYTHM ECG PREVIOUS TRACING : 04/11/2016 04.56 Compared to prior tracing no significant change DOCTOR: Efra Jimenez Interpretating Date/Time 05/13/2017 13:09:13
== END 2017-05-13 06:33 | disposition home or self-care (01) ==
LOC: NEPE 21:53
DX: T40.601A Poisoning by unspecified narcotics, accidental (unintentional), initial encounter (principal); R94.31 Abnormal electrocardiogram [ECG] [EKG]; F12.90 Cannabis use, unspecified, uncomplicated; F11.90 Opioid use, unspecified, uncomplicated; F14.90 Cocaine use, unspecified, uncomplicated; Z72.0 Tobacco use
CPT/HCPCS: 71010; 80053; 80307; 85007; 85027; 93005; 96361; 96374; 99284; J2310; J7030

== ENCOUNTER 2017-05-13 23:35 | Inpatient (IN) | payer SELFPAY ==
[~2017-05-13] VITALS: Ht 188 cm; Wt 86.8 kg
[2017-05-13 04:05] VITALS: O2SAT 98
[2017-05-13 20:00] VITALS: BP 111/73; PULSE 102; RESP 23; TEMP 99.7; O2SAT 99
[2017-05-13 23:38] VITALS: PULSE 110; RESP 26; TEMP 98.6
[2017-05-13] MEDS ORDERED: NALOXONE HCL 2 MG/2 ML VIAL ONE (23:38)
[2017-05-13] MEDS ORDERED: SODIUM CHLOR 0.9% 1000 ML INJ 1,000 ML IV ONE (23:42)
[2017-05-13 23:44] VITALS: BP 110/66; PULSE 119; RESP 20; O2SAT 88
[2017-05-13] MEDS ORDERED: NALOXONE HCL 2 MG/2 ML VIAL IV PUSH ONE (23:45)
[2017-05-13] MEDS ORDERED: SODIUM CHLORIDE 0.9% FLUSH 10 ML FLUSH IVF PRN (23:45)
--- NOTE | 2017-05-13 23:49 | PD ---
HPI Chief Complaint: OD/ Ingestion Time Seen by Provider: 23:42 Travel History International Travel<30 days: No Contact w/Intl Traveler<30days: No Traveled to known affect area: No History of Present Illness HPI 56-year-old man with history of opiate overdose yesterday, presents to the ER today brought in by EMS, found by family unresponsive, apparently had vomitus around his mouth and face when EMS found him, they gave him Narcan and was able to get him more awake. He is lethargic in the ER and he was given additional dose of Narcan. He admits that he took Roxicodone this evening but states he only took one tablet. He denies any other ingestions. Modifying Factors: None Associated Signs & Symptoms: Opiate overdose Risk Factors: Recent history of opiate overdose PFSH Past Medical History Arthritis: Yes Asthma: Yes ( A CHILD) Autoimmune Disease: No Bipolar Disorder: Yes Anxiety: No Depression: No Heart Rhythm Problems: No Cancer: No Cardiovascular Problems: No High Cholesterol: No Chemotherapy: No Chest Pain: No Congestive Heart Failure: No COPD: No Cerebrovascular Accident: No Diabetes: No Diminished Hearing: No Endocrine: No GERD: No Genitourinary: No Hiatal Hernia: No Immune Disorder: No Implanted Vascular Access Dvce: Yes Kidney Stones: No Musculoskeletal: No Neurologic: No Psychiatric: No Reproductive: No Respiratory: Yes Immunizations Current: Yes Migraines: No Radiation Therapy: No Renal Failure: No Seizures: No Sickle Cell Disease: No Sleep Apnea: No Thyroid Disease: No Ulcer: No Past Surgical History Abdominal Surgery: No AICD: No Arteriovenous Shunt: No Body Medical Devices: LEFT WRIST ORIF, LEFT ELBOW ORIF, LEFT ORBITAL REPAIR Cardiac Surgery: No Ear Surgery: No Endocrine Surgery: No Eye Surgery: Yes (LEFT ORBITAL REPAIR) Genitourinary Surgery: No Gynecologic Surgery: No Insulin Pump: No Joint Replacement: No Oral Surgery: No Pacemaker: No Thoracic Surgery: No Other Surgery: Yes Social History Alcohol Use: Yes (daily) Tobacco Use: Yes Substance Use: Yes (herion, marijaunia, crack) Allergies-Medications (Allergen,Severity, Reaction): Coded Allergies: No Known Allergies (Verified , 04/25/17) Reported Meds & Prescriptions Reported Meds & Active Scripts Active No Active Prescriptions or Reported Medications Review of Systems ROS Limitations: Intoxication Except as stated in HPI: all other systems reviewed are Neg Physical Exam Narrative GENERAL: Well-developed middle age white male patient currently lethargic, in moderate distress. Answering some questions. SKIN: Focused skin assessment warm/dry. HEAD: Atraumatic. Normocephalic. EYES: Pupils equal , pinpoint, and round and reactive to light. No scleral icterus. No injection or drainage. ENT: No nasal bleeding or discharge. Mucous membranes pink and moist. NECK: Trachea midline. No JVD. CARDIOVASCULAR: Regular rate and rhythm. No murmur appreciated. RESPIRATORY: No accessory muscle use. Right sided crackles notable. Breath sounds equal bilaterally. GASTROINTESTINAL: Abdomen soft, non-tender, nondistended. Hepatic and splenic margins not palpable. MUSCULOSKELETAL: No obvious deformities. No clubbing. No cyanosis. No edema. NEUROLOGICAL: Awake and lethargic. No obvious cranial nerve deficits. Motor grossly within normal limits. Slurred speech. PSYCHIATRIC: Appropriate mood and affect; insight and judgment poor. Data Data Last Documented VS Vital Signs Date Time Temp Pulse Resp B/P (MAP) Pulse Ox O2 Delivery O2 Flow Rate FiO2 05/14/17 00:00 Non-Rebreather 15.00 05/13/17 23:44 119 20 110/66 (81) 88 05/13/17 23:38 98.6 Orders Orders Naloxone Inj (Narcan Inj) (05/13/17 23:38) Electrocardiogram (05/13/17 23:42) Complete Blood Count With Diff (05/13/17 23:42) Comprehensive Metabolic Panel (05/13/17 23:42) Chest, Single Ap (05/13/17 23:42) Iv Access Insert/Monitor (05/13/17 23:42) Ecg Monitoring (05/13/17 23:42) Oximetry (05/13/17 23:42) Naloxone Inj (Narcan Inj) (05/13/17 23:45) Sodium Chloride 0.9% Flush (Ns Flush) (05/13/17 23:45) Sodium Chlor 0.9% 1000 Ml Inj (Ns 1000 M (05/13/17 23:42) Drug Screen, Random Urine (05/13/17 23:42) Alcohol (Ethanol) (05/13/17 23:42) Salicylates (Aspirin) (05/13/17 23:42) Tylenol (Acetaminophen) (05/13/17 23:42) Lactic Acid Sepsis Protocol (05/14/17 00:17) Blood Culture (05/14/17 00:17) Blood Glucose (05/14/17 00:17) Oxygen Administration (05/14/17 00:17) Cefepime Inj (Maxipime Inj) (05/14/17 00:17) Azithromycin Inj (Zithromax Inj) (05/14/17 00:17) Arterial Blood Gas (Abg) (05/14/17 ) Admit Order (Ed Use Only) (05/14/17 01:28) Labs Laboratory Tests Test 05/14/17 00:00 05/14/17 00:30 White Blood Count 18.1 TH/MM3 Red Blood Count 4.16 MIL/MM3 Hemoglobin 12.5 GM/DL Hematocrit 38.6 % Mean Corpuscular Volume 92.8 FL Mean Corpuscular Hemoglobin 30.1 PG Mean Corpuscular Hemoglobin Concent 32.4 % Red Cell Distribution Width 15.5 % Platelet Count 204 TH/MM3 Mean Platelet Volume 8.2 FL Neutrophils (%) (Auto) 65.1 % Lymphocytes (%) (Auto) 22.1 % Monocytes (%) (Auto) 11.4 % Eosinophils (%) (Auto) 0.8 % Basophils (%) (Auto) 0.6 % Neutrophils # (Auto) 11.7 TH/MM3 Lymphocytes # (Auto) 4.0 TH/MM3 Monocytes # (Auto) 2.1 TH/MM3 Eosinophils # (Auto) 0.2 TH/MM3 Basophils # (Auto) 0.1 TH/MM3 CBC Comment DIFF FINAL Differential Comment Blood Urea Nitrogen 14 MG/DL Creatinine 1.00 MG/DL Random Glucose 157 MG/DL Total Protein 7.1 GM/DL Albumin 2.9 GM/DL Calcium Level 8.4 MG/DL Alkaline Phosphatase 67 U/L Aspartate Amino Transf (AST/SGOT) 53 U/L Alanine Aminotransferase (ALT/SGPT) 71 U/L Total Bilirubin 0.5 MG/DL Sodium Level 139 MEQ/L Potassium Level 3.8 MEQ/L Chloride Level 103 MEQ/L Carbon Dioxide Level 27.7 MEQ/L Anion Gap 8 MEQ/L Estimat Glomerular Filtration Rate 77 ML/MIN Salicylates Level LESS THAN 1.7 MG/DL Urine Opiates Screen POS Acetaminophen Level LESS THAN 2.0 MCG/ML Urine Barbiturates Screen NEG Urine Amphetamines Screen NEG Urine Benzodiazepines Screen POS Urine Cocaine Screen NEG Urine Cannabinoids Screen NEG Ethyl Alcohol Level LESS THAN 3 MG/DL Lactic Acid Level 1.8 mmol/L MDM Medical Decision Making Medical Screen Exam Complete: Yes Emergency Medical Condition: Yes Medical Record Reviewed: Yes Interpretation(s) EKG shows sinus tachycardia rate of 108 bpm. No signs of acute ST-T changes. Laboratory Tests Test 05/14/17 00:00 05/14/17 00:30 White Blood Count 18.1 TH/MM3 (4.0-11.0) Red Blood Count 4.16 MIL/MM3 (4.50-5.90) Hemoglobin 12.5 GM/DL (13.0-17.0) Hematocrit 38.6 % (39.0-51.0) Monocytes (%) (Auto) 11.4 % (0.0-8.0) Neutrophils # (Auto) 11.7 TH/MM3 (1.8-7.7) Monocytes # (Auto) 2.1 TH/MM3 (0-0.9) Random Glucose 157 MG/DL (74-106) Albumin 2.9 GM/DL (3.4-5.0) Calcium Level 8.4 MG/DL (8.5-10.1) Aspartate Amino Transf (AST/SGOT) 53 U/L (15-37) Estimat Glomerular Filtration Rate 77 ML/MIN (>89) Salicylates Level LESS THAN 1.7 MG/DL Urine Opiates Screen POS (NEG) Acetaminophen Level LESS THAN 2.0 MCG/ML Urine Benzodiazepines Screen POS (NEG) Last 24 hours Impressions Chest X-Ray 05/13/17 1741 Signed Impressions: Service Date/Time: Sunday, May 14, 2017 00:05 - CONCLUSION: Consolidation within the medial right lung base and mild interstitial prominence within left lung base. Harry Crooks Jr., MD Differential Diagnosis Accidental overdose/opiate abuse: Rule out metabolic issues versus sepsis versus coingestions Narrative Course Patient had to be given several doses of Narcan while in the ER due to lethargy and hypoxia. Chest x-ray shows a right sided infiltrate concerning for aspiration pneumonia. IV antibiotics were initiated after cultures were drawn. He continues to be hypoxic despite oxygen treatment in the ER. At this point , he is awake and able to talk and my plan would be to admit the patient for further treatment to ICU especially with ongoing problems with hypoxia and opiate overdose as well as pneumonia. Case was discussed with Dr. Hernandes for admission. Aggregate critical care time was 30 minutes. Time to perform other separately billable procedures was not included in the critical care time. My time did not include minutes spent treating any other patients simultaneously or on activities that did not directly contribute to the patient's treatment. The services I provided to this patient were to treat and/or prevent clinically significant deterioration that could result in: Worsening hypoxia, sepsis, respiratory arrest, I provided critical care services requiring my management, as noted below: Chart data review, documentation time, medication orders and management, vital sign assessments/reviewing monitor data, ordering and reviewing lab tests, ordering and interpreting/reviewing x-rays and diagnostic studies, care of the patient and discussion of the patient with the admitting physicians. Diagnosis Primary Impression: Opiate overdose Additional Impressions: Pneumonia Hypoxia Admitting Information Admitting Physician Requests: Admit Scripts No Active Prescriptions or Reported Meds Ramya Causey MD May 13, 2017 23:49
[2017-05-14] VITALS (19 sets, daily range): BP systolic 97–132; BP diastolic 64–80; PULSE 102–135; RESP 16–23; TEMP 99.7–102.7; O2SAT 94–100
[2017-05-14 00:12] LABS: AUTOMATED NEUTROPHIL # 11.7 TH/MM3 (1.8-7.7); BASOPHIL # 0.1 TH/MM3 (0-0.2); BASOPHIL % 0.6 % (0.0-2.0); EOSINOPHIL # 0.2 TH/MM3 (0-0.4); EOSINOPHIL % 0.8 % (0.0-4.0); HEMATOCRIT 38.6 % (39.0-51.0); HEMO FLAGS DIFF FINAL; LYMPH % 22.1 % (9.0-44.0); MEAN CELL VOLUME 92.8 FL (80.0-100.0); MEAN CORPUSCULAR HEMOGLOBIN 30.1 PG (27.0-34.0); MEAN CORPUSCULAR HGB CONC 32.4 % (32.0-36.0); MONO % 11.4 % (0.0-8.0); NEUT % 65.1 % (16.0-70.0); PLATELET COUNT 204 TH/MM3 (150-450); RED BLOOD COUNT 4.16 MIL/MM3 (4.50-5.90); RED CELL DISTRIBUTION WIDTH 15.5 % (11.6-17.2); WHITE BLOOD COUNT 18.1 TH/MM3 (4.0-11.0)
[2017-05-14] MEDS ORDERED: AZITHROMYCIN INJ 500 MG in SODIUM CHLOR 0.9% 250 ML INJ 250 ML IV STA (00:17)
[2017-05-14] MEDS ORDERED: CEFEPIME INJ 2,000 MG in SODIUM CHLORIDE 0.9% INJ 100 ML IV STA (00:17)
--- NOTE | 2017-05-14 00:18 | RADRPT ---
EXAM DATE/TIME: 05/14/2017 00:05 [facility] COMPARISON: CHEST SINGLE AP, May 12, 2017, 22:22. INDICATIONS : Short of breath. MEDICAL HISTORY : None. SURGICAL HISTORY : None. ENCOUNTER: Subsequent ACUITY: 2 days PAIN SCORE: Non-responsive. LOCATION: Bilateral chest FINDINGS: A single portable frontal view of the chest shows a subtle parenchymal density within the medial righ t lung base. This is new. Patchy interstitial prominence within the left lung base is new. No effusio ns. Heart is normal in size. No pulmonary vascular engorgement. Bony structures are unremarkable. CONCLUSION: Consolidation within the medial right lung base and mild interstitial prominence within left lung bas e. Harry Crooks Jr., MD on May 14, 2017 at 0:16 Board Certified Radiologist. This report was verified electronically.
[2017-05-14 00:49] LABS: ALT (GPT) 71 U/L (12-78); ANION GAP 8 MEQ/L (5-15); AST (GOT) 53 U/L (15-37); BICARBONATE 27.7 MEQ/L (21.0-32.0); BLOOD UREA NITROGEN 14 MG/DL (7-18); CHLORIDE 103 MEQ/L (98-107); GLOMERULAR FILTRATION RATE 77 ML/MIN (>89); POTASSIUM 3.8 MEQ/L (3.5-5.1); SODIUM (NA) 139 MEQ/L (136-145)
[2017-05-14 00:51] LABS: ACETAMINOPHEN LESS THAN 2.0 MCG/ML (10.0-30.0); ALKALINE PHOSPHATASE 67 U/L (45-117); TOTAL BILIRUBIN ADULT 0.5 MG/DL (0.2-1.0)
[2017-05-14 01:03] LABS: ALCOHOL LESS THAN 3 MG/DL (0-5)
[2017-05-14] MEDS ORDERED: SENNOSIDES 8.6 MG TAB PO PRN (01:45)
[2017-05-14] MEDS ORDERED: VANCOMYCIN INJ 1,000 MG in SODIUM CHLOR 0.9% 250 ML INJ 250 ML IV SCH (01:45)
[2017-05-14] MEDS ORDERED: CHLORHEXIDINE GLUCONATE 2 % 1 PACK (2 CLOTHS) TOP PRN (01:45)
[2017-05-14] MEDS ORDERED: MAGNESIUM HYDROXIDE SUSP 30 ML CUP PO PRN (01:45)
[2017-05-14] MEDS ORDERED: GLUCAGON 1 MG/ML VIAL OTHER PRN (01:45)
[2017-05-14] MEDS ORDERED: RESP: IPRATROPIUM 0.5 MG/2.5 ML NEB INH PRN (01:45)
[2017-05-14] MEDS ORDERED: DEXTROSE 50% IN WATER 50 ML VIAL(D50) IV PUSH PRN (01:45)
[2017-05-14] MEDS ORDERED: Vancomycin Consult Pharmacy 1 EA OTHER SCH (01:45)
[2017-05-14] MEDS ORDERED: LACTULOSE SYRUP 20 GM/30 ML CUP PO PRN (01:45)
[2017-05-14] MEDS ORDERED: MISCELLANEOUS NURSING INFORMATION XX SCH (01:45)
[2017-05-14] MEDS ORDERED: BISACODYL 10 MG SUPP RECTAL PRN (01:45)
[2017-05-14 01:57] LABS: BLOOD GAS BASE EXCESS 3.2 mmol/L (-2-2); BLOOD GAS CARBOXYHEMOGLOBIN 2.4 % (0-4); BLOOD GAS HCO3 29 mmol/L (22-26); BLOOD GAS METHEMOGLOBIN 0.6 % (0-2); BLOOD GAS O2 HGB SATURATION 92 % (90-100); BLOOD GAS OXYGEN CONTENT 18.5 Vol % (12.0-20.0); BLOOD GAS PCO2 59 mmHg (38-42); BLOOD GAS PO2 79 mmHG (61-120); BLOOD GAS TOTAL HGB 14.3 G/DL (12.0-16.0); TEMP CORR TO 98.6
[2017-05-14 01:58] LABS: CRITICAL VALUE YES; DRAW SITE LT RADIAL; LITER FLOW 12 L/M; NUMBER OF ARTERIAL PUNCTURES 1; OXYGEN DEVICE NONREB MASK; STAT YES; ULNAR PULSE PRESENT
[2017-05-14] MEDS: SODIUM CHLOR 0.9% 1000 ML INJ 1,000 ML IV SCH ×2 (02:39→16:52)
[2017-05-14] MEDS ORDERED: VANCOMYCIN INJ 1,800 MG in SODIUM CHLORID 0.9% 500 ML INJ 500 ML IV ONE (03:00)
[2017-05-14] MEDS ORDERED: ETOMIDATE 20 MG/10 ML VIAL ONE (03:30)
[2017-05-14] MEDS ORDERED: PROPOFOL 1000 MG/100 ML INJ 100 ML ONE ×2 (03:30→05:31)
[2017-05-14] MEDS ORDERED: SUCCINYLCHOLINE CHLORIDE 200 MG/10 ML VIAL ONE (03:31)
[2017-05-14] MEDS: PIPERACIL-TAZO 4.5 GM PREMIX 100 ML IV SCH ×4 (03:49→21:57)
[2017-05-14] MEDS: INSULIN NovoLIN REGULAR SUPPLEMENTAL SCALE SQ SCH ×6 (04:00→23:52)
[2017-05-14] MEDS: CHLORHEXIDINE GLUCONATE 2 % 1 PACK (2 CLOTHS) TOP SCH (04:00)
--- NOTE | 2017-05-14 04:08 | RADRPT ---
EXAM DATE/TIME: 05/14/2017 03:45 [facility] COMPARISON: CHEST SINGLE AP, May 14, 2017, 0:05. INDICATIONS : Tube placement. MEDICAL HISTORY : None. SURGICAL HISTORY : None. ENCOUNTER: Initial ACUITY: 1 day PAIN SCORE: Non-responsive. LOCATION: Bilateral chest FINDINGS: Single portable frontal view the chest shows worsening appearance to the lungs. Diffuse bilateral pul monary infiltrates now observed more pronounced involving the right lung. These are intralobular in n ature. No effusions. Heart normal in size. Endotracheal tube has been placed with the tip 4 cm from t he [place]. Nasogastric tube tip courses off the inferior margin of the film. CONCLUSION: 1. Diffuse followup pulmonary infiltrates now seen more pronounced on the right. 2. Endotracheal tube and nasogastric tube. Harry Crooks Jr., MD on May 14, 2017 at 4:06 Board Certified Radiologist. This report was verified electronically.
--- NOTE | 2017-05-14 04:29 | RADRPT ---
EXAM DATE/TIME: 05/14/2017 03:56 [facility] COMPARISON: CT BRAIN W/O CONTRAST, April 20, 2017, 21:16. INDICATIONS : Altered mental status. RADIATION DOSE: 56.35 CTDIvol (mGy) MEDICAL HISTORY : Non-responsive. SURGICAL HISTORY : Non-responsive. ENCOUNTER: Initial ACUITY: 1 day PAIN SCALE: Non-responsive LOCATION: cranial TECHNIQUE: Multiple contiguous axial images were obtained of the head. Using automated exposure control and adj ustment of the mA and/or kV according to patient size, radiation dose was kept as low as reasonably a chievable to obtain optimal diagnostic quality images. DICOM format image data is available electro nically for review and comparison. FINDINGS: CEREBRUM: The ventricles are normal for age. No evidence of midline shift, mass lesion, hemorrhage or acute in farction. No extra-axial fluid collections are seen. POSTERIOR FOSSA: The cerebellum and brainstem are intact. The 4th ventricle is midline. The cerebellopontine angle i s unremarkable. EXTRACRANIAL: The visualized portion of the orbits is intact. SKULL: The calvaria is intact. No evidence of skull fracture. CONCLUSION: No acute disease. Harry Crooks Jr., MD on May 14, 2017 at 4:26 Board Certified Radiologist. This report was verified electronically.
[2017-05-14 05:11] LABS: BLOOD GAS BASE EXCESS 0.4 mmol/L (-2-2); BLOOD GAS CARBOXYHEMOGLOBIN 1.8 % (0-4); BLOOD GAS HCO3 27 mmol/L (22-26); BLOOD GAS METHEMOGLOBIN 0.6 % (0-2); BLOOD GAS O2 HGB SATURATION 93 % (90-100); BLOOD GAS OXYGEN CONTENT 18.3 Vol % (12.0-20.0); BLOOD GAS PCO2 62 mmHg (38-42); BLOOD GAS PO2 86 mmHG (61-120); BLOOD GAS TOTAL HGB 13.9 G/DL (12.0-16.0); CRITICAL VALUE YES; DRAW SITE RT RADIAL; LITER FLOW 12 L/M; NUMBER OF ARTERIAL PUNCTURES 1; OXYGEN DEVICE NONREBREATH MSK; TEMP CORR TO 98.6; ULNAR PULSE PRESENT
[2017-05-14 05:12] LABS: STAT YES
[2017-05-14 05:27] LABS: BLOOD GAS BASE EXCESS 1.9 mmol/L (-2-2); BLOOD GAS CARBOXYHEMOGLOBIN 1.5 % (0-4); BLOOD GAS HCO3 27 mmol/L (22-26); BLOOD GAS METHEMOGLOBIN 0.6 % (0-2); BLOOD GAS O2 HGB SATURATION 97 % (90-100); BLOOD GAS OXYGEN CONTENT 17.4 Vol % (12.0-20.0); BLOOD GAS PCO2 49 mmHg (38-42); BLOOD GAS PO2 142 mmHG (61-120); BLOOD GAS TOTAL HGB 12.5 G/DL (12.0-16.0); CRITICAL VALUE NO; DRAW SITE RT RADIAL; FIO2 70 %; NUMBER OF ARTERIAL PUNCTURES 1; OXYGEN DEVICE VENTILATOR; STAT NO; TEMP CORR TO 98.6; ULNAR PULSE PRESENT; VENT SETTINGS PRVC18/500/0.9/+5
[2017-05-14] MEDS: ACETAMINOPHEN 325 MG TAB PO PRN (05:46)
--- NOTE | 2017-05-14 06:28 | MH ---
cc: RUBA RODRIGEZ M.D. DATE OF ADMISSION: 05/14/2017 DATE OF : 1960 ADMITTING DIAGNOSIS: The patient is a 56-year-old male with past medical history of bronchial asthma, polysubstance abuse, EtOH use who presented to [facility] emergency department after he was brought in by EMS found by his family unresponsive. Per emergency department records the patient had vomitus around his mouth and face when EMS found him day given Narcan and were able to get him more awake. On arrival to the emergency room he was lethargic and was given additional doses of Narcan. The patient states that he took Roxicodone 2 tablets in addition he reports drinking 6-18 beers per day. On arrival to the emergency room he was tachycardiac with heart rate of 110-119. The patient was placed on a non-rebreather mask. ABG was ordered in the emergency room. Chest x-ray Was performed which showed consolidation within the medial right lung base and mild interstitial prominence within the left lung base. His laboratory data significant for leukocytosis with a WBC of 18.1. A lactic acid level measured at 1.8 and his urine toxicology screen positive for opiates and benzodiazepines. In the emergency room he was given 1 liter bolus of normal saline Narcan, cefepime and azithromycin. When seen the patient is on non-rebreather mask, able to respond to questions. However, he becomes drowsy at times. PAST MEDICAL HISTORY: Past medical history significant for bronchial asthma arthritis. PAST SURGICAL HISTORY Previous open reduction, internal fixation of left wrist and elbow. ALLERGIES NO KNOWN DRUG ALLERGIES. SOCIAL HISTORY The patient drinks 6-18 beers on daily basis. In addition he is active smoker and has history of polysubstance abuse per records. MEDICATIONS: Reported medications. No active prescriptions. FAMILY HISTORY Noncontributory. REVIEW OF SYSTEMS As per history of present illness. Review of systems limited as patient is poor historian given his mental status. PHYSICAL EXAMINATION IN GENERAL: A 56-year-old male lying in bed in mild respiratory distress. VITAL SIGNS: Temperature 98.6, pulse of 118, respiratory rate of 26, blood pressure 110/66, saturation 97% on a non-rebreather mask. HEAD, EYES, EARS, NOSE, AND THROAT: Atraumatic, normocephalic pupil equal and reactive to accommodation extraocular muscles intact. Conjunctiva pink. Nonicteric sclerae. Oral mucosa within normal. NECK: Supple. No jugular venous distention, adenopathy, thyromegaly. Trachea midline. CARDIOVASCULAR SYSTEM: Tachycardiac normal S1-S2. No murmurs, rubs or gallops noted. LUNGS: Pulmonary exam bilateral equal entry with coarse breath sounds at the right lung base. No wheezing. ABDOMEN: Soft, nontender, no distension. Positive bowel sounds. EXTREMITIES: No cyanosis, or edema. NEUROLOGICALLY: Responds to questions. However is drowsy at times. LABORATORY DATA W WBC 18.1, hemoglobin 12.5, hematocrit 38, platelet count 204, sodium of 139, potassium 3.8, chloride 103, CO2 27, BUN 14, creatinine one, glucose 157, lactic acid 1.8, AST 53, ALT 71, total bilirubin 0.5, albumin 2.9. Urine tox screen positive for opiates and benzodiazepines. Alcohol level less than three. RADIOGRAPHY Chest x-ray Showed consolidation within the medial right lung base and mild interstitial prominence with an left lung base. IMPRESSION Acute respiratory insufficiency. Altered mental status. Drug overdose. Right-sided pneumonia. Leukocytosis Elevated AST. Anemia EtOH abuse. RECOMMENDATIONS Monitor neuro status closely and avoid any sedatives. Patient status post Narcan in the emergency department. Will place on thiamine, multivitamins and folic acid. Wean down oxygen as tolerated and maintain sats above 92%. Bronchodilators in the form of DuoNeb q. 4+ q. two p.r.n. for shortness of breath. Check ABG if there is any worsening in clinical status will proceed with intubation and mechanical ventilation. Monitor heart rate and blood pressure closely and maintain MAP greater 65 mmHg. Lactic acid level measured at 1.8. Monitor renal function Is and Os and electrolyte replacement as needed. He was given 1 liter bolus of crystalloid in the emergency department. Will continue with maintenance fluids NS at 84 an hour. Keep n.p.o. for now till mental status and respiratory status improves. Place on Protonix 40 mg daily for gastrointestinal prophylaxis. Continue with broad-spectrum antibiotics. Will place on vancomycin, Zosyn and azithromycin. Monitor for signs infections which include fever and WBC. Follow up on blood cultures in addition we will check sputum culture with gram stain, strep pneumonia and Legionella urinary antigen. Monitor CBC. Place on sliding scale insulin. With Accu-Chek's for glycemic control. GI prophylaxis with Protonix 40 mg daily and DVT prophylaxis with SCDs and heparin Subcu. Further recommendations will be based on hospital course. Thank you. MD DELVIS Velasco/radha /2:01 AM /6:04 AM
[2017-05-14] MEDS: RESP: ALBUTEROL 2.5 MG/IPRATROPIUM 0.5 MG NEB (SCH) INH ×5 (07:39→23:14)
[2017-05-14] MEDS: PROPOFOL 1000 MG/100 ML IV PRN ×3 (07:42→21:58)
[2017-05-14] MEDS: DOCUSATE SODIUM 50 MG/SENNA 8.6 MG TAB PO SCH ×2 (07:43→21:57)
[2017-05-14] MEDS: FOLIC ACID 1 MG TAB PO SCH (07:43)
[2017-05-14] MEDS: MULTIVITAMIN TAB PO SCH (07:43)
[2017-05-14] MEDS: THIAMINE HCL 100 MG TAB PO SCH (07:43)
[2017-05-14] MEDS: HEPARIN SODIUM - SQ 10,000 UNITS/ML VIAL SQ SCH ×2 (07:43→21:57)
--- NOTE | 2017-05-14 14:23 | EKG ---
Date Performed: 05/13/2017 Time Performed: 23:52:01 PTAGE: 56 years EKG: SINUS TACHYCARDIA MARKED LEFT AXIS DEVIATION INFERIOR MYOCARDIAL INFARCTION ABNORMAL ECG IN TERPRETATION BASED ON A DEFAULT AGE OF 40 YEARS NO PREVIOUS TRACING DOCTOR: David Tompkins Interpretating Date/Time 05/14/2017 14:17:07
[2017-05-14] MEDS ORDERED: PROPOFOL 1000 MG/100 ML IV PRN (16:00)
[2017-05-14] MEDS: VANCOMYCIN INJ 1,750 MG in SODIUM CHLORID 0.9% 500 ML INJ 500 ML IV SCH (16:52)
[2017-05-15] VITALS (20 sets, daily range): BP systolic 93–132; BP diastolic 55–86; PULSE 76–116; RESP 22–25; TEMP 97.8–100.3; O2SAT 94–100
[2017-05-15] MEDS: PIPERACIL-TAZO 4.5 GM PREMIX 100 ML IV SCH ×4 (03:51→20:30)
[2017-05-15] MEDS: INSULIN NovoLIN REGULAR SUPPLEMENTAL SCALE SQ SCH ×5 (03:52→20:00)
[2017-05-15] MEDS: CHLORHEXIDINE GLUCONATE 2 % 1 PACK (2 CLOTHS) TOP SCH (03:52)
[2017-05-15] MEDS: AZITHROMYCIN INJ 500 MG in SODIUM CHLOR 0.9% 250 ML INJ 250 ML IV SCH (03:52)
[2017-05-15] MEDS: PROPOFOL 1000 MG/100 ML IV PRN ×2 (03:53→04:49)
[2017-05-15] MEDS: RESP: ALBUTEROL 2.5 MG/IPRATROPIUM 0.5 MG NEB (SCH) INH ×6 (03:58→23:31)
[2017-05-15 04:14] LABS: AUTOMATED NEUTROPHIL # 5.9 TH/MM3 (1.8-7.7); BASOPHIL % 0.3 % (0.0-2.0); EOSINOPHIL # 0.2 TH/MM3 (0-0.4); EOSINOPHIL % 1.8 % (0.0-4.0); HEMO FLAGS DIFF FINAL; LYMPH % 17.1 % (9.0-44.0); LYMPHOCYTE # 1.5 TH/MM3 (1.0-4.8); MEAN CORPUSCULAR HEMOGLOBIN 30.2 PG (27.0-34.0); MEAN CORPUSCULAR HGB CONC 32.8 % (32.0-36.0); MONO % 11.1 % (0.0-8.0); NEUT % 69.7 % (16.0-70.0); PLATELET COUNT 165 TH/MM3 (150-450); RED BLOOD COUNT 4.13 MIL/MM3 (4.50-5.90); RED CELL DISTRIBUTION WIDTH 15.2 % (11.6-17.2); WHITE BLOOD COUNT 8.5 TH/MM3 (4.0-11.0)
[2017-05-15 04:20] LABS: APTT (PATIENT) 28.3 SEC (24.3-30.1)
[2017-05-15 04:55] LABS: ALKALINE PHOSPHATASE 52 U/L (45-117); ALT (GPT) 55 U/L (12-78); ANION GAP 6 MEQ/L (5-15); AST (GOT) 44 U/L (15-37); BLOOD UREA NITROGEN 9 MG/DL (7-18); CHLORIDE 108 MEQ/L (98-107); GLOMERULAR FILTRATION RATE 114 ML/MIN (>89); POTASSIUM 3.7 MEQ/L (3.5-5.1); SODIUM (NA) 143 MEQ/L (136-145); TOTAL BILIRUBIN ADULT 0.6 MG/DL (0.2-1.0)
[2017-05-15] MEDS: VANCOMYCIN INJ 1,750 MG in SODIUM CHLORID 0.9% 500 ML INJ 500 ML IV SCH ×2 (06:51→18:09)
[2017-05-15] MEDS ORDERED: DEXMEDETOMIDINE INJ 50 ML IV SCH (07:45)
[2017-05-15] MEDS ORDERED: ICU - D/C ICU ELECTROLYTE ORDERS PRN (08:00)
[2017-05-15] MEDS ORDERED: ICU - POTASSIUM PHOSPHATE 30 MMOL/NS 250 ML IV PRN ×2 (08:00)
[2017-05-15] MEDS ORDERED: ICU - MAGNESIUM SULFATE 2 GM/NS 100 ML IV PRN ×2 (08:00)
[2017-05-15] MEDS ORDERED: POTASSIUM CHLORIDE 25 MEQ EFFERVESCENT TAB PO PRN (08:00)
[2017-05-15] MEDS ORDERED: ICU - SODIUM PHOSPHATE 30 MMOL/NS 250 ML IV PRN ×2 (08:00)
[2017-05-15] MEDS ORDERED: ICU - POTASSIUM CHLORIDE/AQUEOUS SOLN 20 MEQ/100 ML IVPB IV PRN (08:00)
[2017-05-15] MEDS ORDERED: ICU - MAGNESIUM SULFATE 4 GM/NS 100 ML IV PRN ×2 (08:00)
[2017-05-15] MEDS ORDERED: ICU - MAGNESIUM OXIDE 400 MG TAB PO PRN (08:00)
[2017-05-15] MEDS ORDERED: ICU - POTASSIUM PHOSPHATE MONOBASIC 500 MG TAB PO PRN (08:00)
[2017-05-15] MEDS ORDERED: ICU - CALL ORDERING PHYSICIAN PRN (08:00)
--- NOTE | 2017-05-15 08:17 | HHI.CCPN ---
Subjective Remarks/Hospital Course Hospital Course: The patient is a 56-year-old male with past medical history of bronchial asthma, polysubstance abuse, EtOH use who presented to [facility] emergency department after he was brought in by EMS found by his family unresponsive. Per emergency department records the patient had vomitus around his mouth and face when EMS found him day given Narcan and were able to get him more awake. On arrival to the emergency room he was lethargic and was given additional doses of Narcan. The patient states that he took Roxicodone 2 tablets in addition he reports drinking 6-18 beers per day. On arrival to the emergency room he was tachycardiac with heart rate of 110-119. The patient was placed on a non-rebreather mask. ABG was ordered in the emergency room. Chest x-ray Was performed which showed consolidation within the medial right lung base and mild interstitial prominence within the left lung base. His laboratory data significant for leukocytosis with a WBC of 18.1. A lactic acid level measured at 1.8 and his urine toxicology screen positive for opiates and benzodiazepines. In the emergency room he was given 1 liter bolus of normal saline Narcan, cefepime and azithromycin. When seen the patient is on non-rebreather mask, able to respond to questions. However, he becomes drowsy at times. Subjective: 05/15: severe agitation prevents weaning of mechanical ventilation. end-organs improving. copious secretions. sputum culture pending. Objective Vital Signs Date Time Temp Pulse Resp B/P (MAP) Pulse Ox O2 Delivery O2 Flow Rate FiO2 05/15/17 04:30 99 35 05/14/17 18:00 106 05/14/17 16:00 100.0 23 110/69 (83) 05/14/17 02:59 Non-Rebreather 15.00 Result Diagram: 05/15/17 0323 05/15/17 0323 Other Results Microbiology Date/Time Source Procedure Growth Status 05/14/17 00:00 Urine Catheterized Urine Legionella Antigen - Final PRESUMPTIVE NEGATIVE FOR LEGIONELLA P... Complete 05/14/17 00:00 Urine Catheterized Urine Streptococcus pneumoniae Antigen (M - Final PRESUMPTIVE NEGATIVE FOR STREPTOCOCCU... Complete Objective Remarks GENERAL: middle-aged male, intubated, sedated, critically ill. lying in bed. HEENT: Normocephalic. Atraumatic. Pupils equal, round, reactive, conjugate. Mucous membranes are moist NECK: Trachea is midline. There is no JVD. CHEST: equal chest rise. PRVC 40% fio2. copious secretions in ett. CARDIOVASCULAR: tachycardic rate, regular rhythm. sinus by telemetry. ABDOMEN: Soft, nontender, nondistended. No guarding. MUSCULOSKELETAL: Pulses 2+. No peripheral edema. NEUROLOGICAL: RASS -2 or +1. on awakening becomes severely agitated. withdraws to pain x 4 but does not follow commands. A/P Assessment and Plan Assessment: 56yM with toxic encephalopathy and acute hypoxic and hypercarbic respiratory failure. Continues to have significant problems with agitated delirium and there may be a large component of substance withdraw associated with this. Will work towards aggressively controlling delirium today and wean mechanical ventilation as tolerated. continue broad spectrum abx given copious secretions and follow up sputum cultures. remains critically ill today with worsening delirium. Plan by systems: Neurologic: Toxic encephalopathy Alcohol withdrawal Opiate abuse Possible benzodiazepine abuse Agitated delirium - start valium 10mg po q8hr for bzd/etoh withdraw - continue daily thiamine - add oxycodone 10mg po q4h scheduled for opiate withdraw symptoms - start clonidine 0.2mg po q8hr for withdraw symptoms - add seroquel 100mg po q8hr for agitated delirium - start haldol 5mg iv q4h prn for breakthrough agitation - start precedex and wean propofol as tolerated for goal RASS -2. Respiratory: Acute hypoxic and hypercarbic respiratory failure Community Acquired Aspiration Pneumonia - continue broad spectrum abx - f/u sputum culture - vent bundle, hob at 30 degrees, nebs - when delirium under better control, will start SBTs. Cardiovascular: Sinus tachycardia - secondary to agitation - clonidine 0.2mg po q8hr - telemetry Renal: Acute kidney injury- resolving - continue donahue today. improving renal function. trend on daily bmp. -- Strict I/Os FEN/GI: Acute protein calorie malnutrition- moderate - start TF today. nutrition consult for goals. - daily bmp Heme/ID: Aspiration pneumonia - Daily CBC - Follow-up cultures - Continue broad-spectrum antibiotics Endocrine: Hyperglycemia of critical illness -- SSI Prophylaxis: GI Prophylaxis - start pepcid DVT Prophylaxis -- SCDs - SQH Lines: Peripheral IVs Dispo: In the ICU. Remains critically ill. Off pathway. This patient remains critically ill with one or more organ systems which are or may become a threat to life. I have spent in excess of 31 minutes discontinuously in the care and management of this patient. This time is exclusive of procedures, and includes, but is not limited to, evaluation of the patient, review of the medical record, discussions with family, consultants, nursing staff, or respiratory therapy, and documentation in the medical record. Roque Byers MD May 15, 2017 07:38
[2017-05-15] MEDS: THIAMINE HCL 100 MG TAB PO SCH (08:48)
[2017-05-15] MEDS: HEPARIN SODIUM - SQ 10,000 UNITS/ML VIAL SQ SCH ×2 (08:48→20:30)
[2017-05-15] MEDS: DIAZEPAM 10 MG TAB PO SCH ×3 (08:48→20:29)
[2017-05-15] MEDS: QUEtiapine FUMARATE 100 MG TAB PO SCH ×2 (08:48→14:00)
[2017-05-15] MEDS: MULTIVITAMIN TAB PO SCH (08:49)
[2017-05-15] MEDS: FOLIC ACID 1 MG TAB PO SCH (08:49)
[2017-05-15] MEDS: oxyCODONE HCL ORAL CONC 20 MG/ML SYRINGE PO SCH ×3 (08:49→15:48)
[2017-05-15] MEDS: DOCUSATE SODIUM 50 MG/SENNA 8.6 MG TAB PO SCH ×2 (08:49→20:29)
[2017-05-15] MEDS: cloNIDine HCL 0.2 MG TAB PO SCH ×3 (08:49→20:29)
[2017-05-15] MEDS ORDERED: DEXMEDETOMIDINE INJ 1,000 MCG in SODIUM CHLOR 0.9% 250 ML INJ 250 ML IV PRN (09:00)
[2017-05-15] MEDS ORDERED: LORazepam 2 MG TAB PO PRN (17:15)
[2017-05-15] MEDS ORDERED: FLUMAZENIL 0.5 MG/5 ML VIAL IV PUSH PRN (17:15)
[2017-05-15] MEDS ORDERED: PHARMACY ORDERED LAB ONE (17:45)
[2017-05-15] MEDS: TAMSULOSIN HCL 0.4 MG CAP PO SCH (18:12)
[2017-05-15] MEDS: FAMOTIDINE 20 MG TAB NG SCH (20:29)
[2017-05-16] VITALS (13 sets, daily range): BP systolic 128–156; BP diastolic 75–91; PULSE 94–119; RESP 20–25; TEMP 98.9–100.9; O2SAT 94–97
[2017-05-16] MEDS: AZITHROMYCIN INJ 500 MG in SODIUM CHLOR 0.9% 250 ML INJ 250 ML IV SCH (02:11)
[2017-05-16] MEDS: PIPERACIL-TAZO 4.5 GM PREMIX 100 ML IV SCH ×4 (02:11→22:16)
[2017-05-16] MEDS: LORazepam 2 MG/ML VIAL IV PUSH PRN ×6 (02:12→22:17)
[2017-05-16] MEDS: CHLORHEXIDINE GLUCONATE 2 % 1 PACK (2 CLOTHS) TOP SCH (04:00)
[2017-05-16] MEDS: INSULIN NovoLIN REGULAR SUPPLEMENTAL SCALE SQ SCH ×6 (04:00→20:00)
[2017-05-16] MEDS: RESP: ALBUTEROL 2.5 MG/IPRATROPIUM 0.5 MG NEB (SCH) INH ×6 (04:23→22:48)
[2017-05-16] MEDS: cloNIDine HCL 0.2 MG TAB PO SCH ×3 (04:54→22:16)
[2017-05-16] MEDS: DIAZEPAM 10 MG TAB PO SCH ×3 (04:54→22:17)
[2017-05-16] MEDS: VANCOMYCIN INJ 1,750 MG in SODIUM CHLORID 0.9% 500 ML INJ 500 ML IV SCH ×2 (04:55→17:28)
[2017-05-16 06:59] LABS: HEMATOCRIT 33.9 % (39.0-51.0); MEAN CELL VOLUME 91.5 FL (80.0-100.0); MEAN CORPUSCULAR HEMOGLOBIN 30.9 PG (27.0-34.0); MEAN CORPUSCULAR HGB CONC 33.7 % (32.0-36.0); PLATELET COUNT 158 TH/MM3 (150-450); RED CELL DISTRIBUTION WIDTH 14.8 % (11.6-17.2); REVIEW FLAG FINAL; WHITE BLOOD COUNT 10.4 TH/MM3 (4.0-11.0)
[2017-05-16] MEDS: HALOPERIDOL LACTATE 5 MG/ML AMP IV PRN (06:59)
[2017-05-16 07:23] LABS: BICARBONATE 25.1 MEQ/L (21.0-32.0); POTASSIUM 3.2 MEQ/L (3.5-5.1)
[2017-05-16] MEDS: ICU - POTASSIUM CHLORIDE/AQUEOUS SOLN 40 MEQ/100 ML IVPB IV PRN ×2 (08:04→09:46)
[2017-05-16] MEDS: THIAMINE HCL 100 MG TAB PO SCH (08:19)
[2017-05-16] MEDS: TAMSULOSIN HCL 0.4 MG CAP PO SCH (08:19)
[2017-05-16] MEDS: DOCUSATE SODIUM 50 MG/SENNA 8.6 MG TAB PO SCH ×2 (08:19→22:16)
[2017-05-16] MEDS: FOLIC ACID 1 MG TAB PO SCH (08:19)
[2017-05-16] MEDS: MULTIVITAMIN TAB PO SCH (08:19)
[2017-05-16] MEDS: FAMOTIDINE 20 MG TAB NG SCH ×2 (08:20→22:17)
[2017-05-16] MEDS: HEPARIN SODIUM - SQ 10,000 UNITS/ML VIAL SQ SCH ×2 (09:00→22:17)
--- NOTE | 2017-05-16 18:28 | HHI.CCPN ---
Subjective Remarks/Hospital Course Hospital Course: The patient is a 56-year-old male with past medical history of bronchial asthma, polysubstance abuse, EtOH use who presented to [facility] emergency department after he was brought in by EMS found by his family unresponsive. Per emergency department records the patient had vomitus around his mouth and face when EMS found him day given Narcan and were able to get him more awake. On arrival to the emergency room he was lethargic and was given additional doses of Narcan. The patient states that he took Roxicodone 2 tablets in addition he reports drinking 6-18 beers per day. On arrival to the emergency room he was tachycardiac with heart rate of 110-119. The patient was placed on a non-rebreather mask. ABG was ordered in the emergency room. Chest x-ray Was performed which showed consolidation within the medial right lung base and mild interstitial prominence within the left lung base. His laboratory data significant for leukocytosis with a WBC of 18.1. A lactic acid level measured at 1.8 and his urine toxicology screen positive for opiates and benzodiazepines. In the emergency room he was given 1 liter bolus of normal saline Narcan, cefepime and azithromycin. When seen the patient is on non-rebreather mask, able to respond to questions. However, he becomes drowsy at times. Subjective: 05/15: severe agitation prevents weaning of mechanical ventilation. end-organs improving. copious secretions. sputum culture pending. 05/16: Extubated yesterday. On nasal cannula. Has some tachypnea and cough. Disoriented however awake and alert. Objective Vital Signs Date Time Temp Pulse Resp B/P (MAP) Pulse Ox O2 Delivery O2 Flow Rate FiO2 05/16/17 16:00 98.9 110 22 156/91 (112) 97 05/16/17 07:33 Nasal Cannula 5.00 05/15/17 16:47 36 Intake and Output 05/16/17 05/16/17 05/17/17 08:00 16:00 00:00 Intake Total 956 ml Output Total 950 ml Balance 6 ml Result Diagram: 05/16/17 0535 05/16/17 0535 Other Results Microbiology Date/Time Source Procedure Growth Status 05/14/17 00:00 Urine Catheterized Urine Legionella Antigen - Final PRESUMPTIVE NEGATIVE FOR LEGIONELLA P... Complete 05/14/17 00:00 Urine Catheterized Urine Streptococcus pneumoniae Antigen (M - Final PRESUMPTIVE NEGATIVE FOR STREPTOCOCCU... Complete Imaging Last Impressions Chest X-Ray 05/14/17 0343 Signed Impressions: Service Date/Time: Sunday, May 14, 2017 03:45 - CONCLUSION: 1. Diffuse followup pulmonary infiltrates now seen more pronounced on the right. 2. Endotracheal tube and nasogastric tube. Harry Crooks Jr., MD Head CT 05/14/17 0000 Signed Impressions: Service Date/Time: Sunday, May 14, 2017 03:56 - CONCLUSION: No acute disease. Harry Crooks Jr., MD Objective Remarks GENERAL: middle-aged male, lying in bed, HEENT: Normocephalic. Atraumatic. Pupils equal, round, reactive, conjugate. Mucous membranes are moist NECK: Trachea is midline. There is no JVD. CHEST: Good air entry bilaterally, scattered rhonchi, minimal wheezing, on nasal cannula CARDIOVASCULAR: tachycardic rate, regular rhythm. sinus by telemetry. ABDOMEN: Soft, nontender, nondistended. No guarding. MUSCULOSKELETAL: Pulses 2+. No peripheral edema. NEUROLOGICAL: Awake and alert, disoriented, moves all 4 extremity is, grossly nonfocal A/P Assessment and Plan Assessment: 56yM with toxic encephalopathy and acute hypoxic and hypercarbic respiratory failure. Continues to have significant problems with agitated delirium and there may be a large component of substance withdraw associated with this. Will work towards aggressively controlling delirium today and wean mechanical ventilation as tolerated. continue broad spectrum abx given copious secretions and follow up sputum cultures. remains critically ill today with worsening delirium. Plan by systems: Neurologic: Toxic encephalopathy Alcohol withdrawal Opiate abuse Possible benzodiazepine abuse Agitated delirium - start valium 10mg po q8hr for bzd/etoh withdraw - continue daily thiamine - add oxycodone 10mg po q4h scheduled for opiate withdraw symptoms - start clonidine 0.2mg po q8hr for withdraw symptoms - add seroquel 100mg po q8hr for agitated delirium - start haldol 5mg iv q4h prn for breakthrough agitation - start precedex and wean propofol as tolerated for goal RASS -2. Respiratory: Acute hypoxic and hypercarbic respiratory failure Community Acquired Aspiration Pneumonia - continue broad spectrum abx - f/u sputum culture - Extubated to nasal cannula on 05/15, hob at 30 degrees, nebs Cardiovascular: Sinus tachycardia - secondary to agitation - clonidine 0.2mg po q8hr - telemetry Renal: Acute kidney injury- resolving - continue donahue today. improving renal function. trend on daily bmp. -- Strict I/Os FEN/GI: Acute protein calorie malnutrition- moderate - start TF today. nutrition consult for goals. - daily bmp Heme/ID: Aspiration pneumonia - Daily CBC - Follow-up cultures - Continue broad-spectrum antibiotics Endocrine: Hyperglycemia of critical illness -- SSI Prophylaxis: GI Prophylaxis - start pepcid DVT Prophylaxis -- SCDs - SQH Lines: Peripheral IVs Ant Nunes MD May 16, 2017 18:28
[2017-05-17] VITALS (24 sets, daily range): BP systolic 116–136; BP diastolic 76–86; PULSE 85–118; RESP 18–22; TEMP 98.6–101.2; O2SAT 77–98
[2017-05-17] MEDS: AZITHROMYCIN INJ 500 MG in SODIUM CHLOR 0.9% 250 ML INJ 250 ML IV SCH (00:54)
[2017-05-17] MEDS: ACETAMINOPHEN 325 MG TAB PO PRN ×2 (00:56→13:25)
[2017-05-17] MEDS: HALOPERIDOL LACTATE 5 MG/ML AMP IV PRN ×3 (01:49→14:29)
[2017-05-17] MEDS: PIPERACIL-TAZO 4.5 GM PREMIX 100 ML IV SCH ×4 (02:17→20:49)
[2017-05-17] MEDS: CHLORHEXIDINE GLUCONATE 2 % 1 PACK (2 CLOTHS) TOP SCH (02:17)
[2017-05-17] MEDS: LORazepam 2 MG/ML VIAL IV PUSH PRN ×3 (02:29→14:30)
[2017-05-17] MEDS: RESP: ALBUTEROL 2.5 MG/IPRATROPIUM 0.5 MG NEB (SCH) INH ×6 (04:00→23:51)
[2017-05-17] MEDS: INSULIN NovoLIN REGULAR SUPPLEMENTAL SCALE SQ SCH ×6 (04:00→20:00)
--- NOTE | 2017-05-17 05:03 | RADRPT ---
EXAM DATE/TIME: 05/17/2017 04:02 [facility] COMPARISON: CHEST SINGLE AP, May 14, 2017, 3:45. INDICATIONS : Short of breath. MEDICAL HISTORY : None. SURGICAL HISTORY : None. ENCOUNTER: Subsequent ACUITY: 3 days PAIN SCORE: 0/10 LOCATION: Bilateral chest FINDINGS: There has been interval extubation and removal of nasogastric tube. Bilateral infiltrates appear to b e slightly improved. Cardiac contours are grossly stable. CONCLUSION: Slight improvement in aeration. Javi Funes MD on May 17, 2017 at 5:00 Board Certified Radiologist. This report was verified electronically.
[2017-05-17] MEDS: VANCOMYCIN INJ 1,750 MG in SODIUM CHLORID 0.9% 500 ML INJ 500 ML IV SCH (05:13)
[2017-05-17] MEDS: DIAZEPAM 10 MG TAB PO SCH ×3 (05:13→20:49)
[2017-05-17] MEDS: cloNIDine HCL 0.2 MG TAB PO SCH ×3 (05:13→20:50)
[2017-05-17 05:53] LABS: HEMATOCRIT 34.5 % (39.0-51.0); MEAN CELL VOLUME 90.9 FL (80.0-100.0); MEAN CORPUSCULAR HEMOGLOBIN 31.1 PG (27.0-34.0); MEAN CORPUSCULAR HGB CONC 34.2 % (32.0-36.0); PLATELET COUNT 171 TH/MM3 (150-450); RED BLOOD COUNT 3.79 MIL/MM3 (4.50-5.90); RED CELL DISTRIBUTION WIDTH 14.7 % (11.6-17.2); REVIEW FLAG FINAL; WHITE BLOOD COUNT 9.7 TH/MM3 (4.0-11.0)
[2017-05-17 06:07] LABS: BICARBONATE 26.5 MEQ/L (21.0-32.0); POTASSIUM 3.5 MEQ/L (3.5-5.1)
--- NOTE | 2017-05-17 07:51 | HHI.PR ---
Subjective Remarks Follow up for polysubstance abuse. Patient is somewhat drowsy but continues to talk. He is requiring restraints. Per RN, without restraints, he tried get out of the bed. He still speaks in a slurred speech patter. However, he is able to communicate. He wants to eat real food. Objective Vitals Vital Signs Date Time Temp Pulse Resp B/P (MAP) Pulse Ox O2 Delivery O2 Flow Rate FiO2 05/17/17 07:30 96 Nasal Cannula 3.00 05/17/17 06:00 92 05/17/17 04:00 99.3 92 21 129/84 (99) 98 05/17/17 04:00 92 05/17/17 02:00 100 05/17/17 00:00 103 05/17/17 00:00 101.2 103 18 136/82 (100) 94 05/16/17 22:00 103 05/16/17 20:20 97 Nasal Cannula 4.00 05/16/17 20:00 118 05/16/17 20:00 99.9 118 20 137/80 (99) 95 05/16/17 16:00 98.9 110 22 156/91 (112) 97 05/16/17 16:00 114 05/16/17 14:00 114 05/16/17 12:00 99.0 118 22 128/78 (95) 97 05/16/17 12:00 114 05/16/17 10:00 114 05/16/17 08:00 114 05/16/17 08:00 98.9 115 22 141/89 (106) 97 I/O 05/16/17 05/16/17 05/16/17 05/17/17 05/17/17 05/17/17 07:00 15:00 23:00 07:00 15:00 23:00 Intake Total 956 ml 617.5 ml 950 ml Output Total 950 ml 2350 ml Balance 6 ml 617.5 ml -1400 ml Intake Oral 120 ml 600 ml IV Total 836 ml 617.5 ml 350 ml Output Urine Total 950 ml 2350 ml # Bowel Movements 0 0 Result Diagram: 05/17/1743005/17/17 043 Imaging Last Impressions Chest X-Ray 05/17/17 06 Signed Impressions: Service Date/Time: Wednesday, May 17, 2017 04:02 - CONCLUSION: Slight improvement in aeration. Javi Funes MD Head CT 05/14/17 0000 Signed Impressions: Service Date/Time: Tuesday, May 14, 2017 03:56 - CONCLUSION: No acute disease. Harry Crooks Jr., MD Objective Remarks GENERAL: Alert, somewhat drowsy, in restraints. SKIN: Warm and dry. HEAD: Normocephalic. EYES: No scleral icterus. No injection or drainage. NECK: Supple, trachea midline. No JVD or lymphadenopathy. CARDIOVASCULAR: Regular rate and rhythm without murmurs, gallops, or rubs. RESPIRATORY: Breath sounds equal bilaterally. No accessory muscle use. GASTROINTESTINAL: Abdomen soft, non-tender, nondistended. MUSCULOSKELETAL: No cyanosis, or edema. BACK: Nontender without obvious deformity. No CVA tenderness. Procedures None. A/P Assessment and Plan Mr. Finley is a 56-year-old male with a long history of substance abuse who presented to the emergency department on 05/13/2017 due to overdose. Patient was found unresponsive by family members. EMS gave him Narcan and was able to wake him up but he was still lethargic in the ER. Patient received additional dose of Narcan in the ED. Patient was managed in the ICU initially and was transferred to hospitalist service on 05/17/2017. - Acute delirium - likely medication used - Polysubstance abuse including opioids, benzodiazepines - Continue clonidine 0.2 mg by mouth every 8 hours, diazepam 10 mg by mouth every 8 hours, CIWA protocol. - Discussed with RN regarding weaning off restraints. - Patient must be upright when he eats food. We'll change diet to regular diet. - Probable aspiration pneumonia - Probable community acquired pneumonia - Chest x-ray reviewed by me. Shows right-sided infiltrates. - We'll continue Zosyn. Sputum is growing Streptococcus pneumoniae. - Switch Azithromycin to Levaquin 750mg Qday. If patient remains afebrile, Zosyn can be discontinued and consider adding Flagyl PO. - Levaquin and Flagyl should cover CAP as well as aspiration pneumonia. Full code. Heparin SQ. Sydnee Vieyra DO May 17, 2017 07:51
[2017-05-17] MEDS: DOCUSATE SODIUM 50 MG/SENNA 8.6 MG TAB PO SCH ×2 (09:00→20:49)
[2017-05-17] MEDS: HEPARIN SODIUM - SQ 10,000 UNITS/ML VIAL SQ SCH ×2 (09:00→20:50)
[2017-05-17] MEDS: FAMOTIDINE 20 MG TAB NG SCH ×2 (10:16→20:49)
[2017-05-17] MEDS: THIAMINE HCL 100 MG TAB PO SCH (10:17)
[2017-05-17] MEDS: MULTIVITAMIN TAB PO SCH (10:17)
[2017-05-17] MEDS: FOLIC ACID 1 MG TAB PO SCH (10:17)
[2017-05-17] MEDS: TAMSULOSIN HCL 0.4 MG CAP PO SCH (10:17)
[2017-05-17] MEDS: LEVOFLOXACIN 750 MG TAB PO SCH (14:30)
--- NOTE | 2017-05-17 20:27 | MB ---
cc: LAILA BAUTISTA DATE OF CONSULTATION 05/17/17 HISTORY OF PRESENT ILLNESS Mr. Bender is a 56-year-old white male who is now on his fourth admission within about the last 7-10 days for drug abuse, polysubstance abuse and presented in respiratory failure on 05/14 admitted by critical care. Also apparently abuses alcohol along with opioids and cocaine. I was asked to see him about continued pulmonary care. 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 Based on the review of the record, he has a history of asthma, also smokes actively and drinks multiple beers a day as well as using drugs. That is the extent of the history that we have available from this record. Initial chest x-ray revealed bilateral infiltrates. Follow up On 05/17 does show some improvement. He has been extubated, currently on nasal cannula 3 liters with O2 sats in the mid 90s. His white count was 18,000 on presentation, is down to 9700, BUN and creatinine are normal. Sputum revealed strep pneumoniae and his blood cultures were negative. He has been on Piperacillin and Levaquin, initially received a dose of Zithromax and vancomycin. Those were discontinued. He has been on aerosol therapy which will be continued. MEDICATIONS Other reviewed in the EMR. PHYSICAL EXAMINATION VITAL SIGNS: 99 degrees, pulse 90, blood pressure 116/84, sat 92% currently, respirations comfortable 16-18. GENERAL: The patient is very confused. HEENT: Sclerae are anicteric. NECK: Neck veins are not distended. He has no palpable adenopathy in the neck. CHEST: Remarkably clear actually, very minimal congestion. No wheezing. HEART: Regular rhythm. No harsh murmur. EXTREMITIES: No peripheral edema or cyanosis. ASSESSMENT Mr. Finley presents with recurrent drug overdoses and alcoholism. The diffuse infiltrates in his lungs are improving and he probably aspirated. He did grow strep pneumoniae from his sputum and he is on adequate antibiotic therapy. Suggest continuing the aerosol therapy along with oxygen. He seems to be making good progress and no further pulmonary intervention at this particular point would be warranted as long as he continues to improve. Obviously, a major issue for him leaving is polysubstance abuse which if left uncorrected will probably result in his . Although I mentioned this to the patient that today, I do not think he is alert enough or aware enough to makes much sense of it at this point. I will not see him on a routine basis as long as things remain stable. He needs a 10 to 14-day course of antibiotics and a followup chest x-ray at some point to be certain that it has cleared. R. MD DILIP Johns/ /6:29 PM /8:13 PM
[2017-05-17] MEDS: LORazepam 1 MG TAB PO PRN (21:25)
[2017-05-18] VITALS (16 sets, daily range): BP systolic 124–138; BP diastolic 72–91; PULSE 89–103; RESP 18–19; TEMP 98.3–98.6; O2SAT 92–97
[2017-05-18] MEDS: PIPERACIL-TAZO 4.5 GM PREMIX 100 ML IV SCH ×2 (01:23→08:00)
[2017-05-18] MEDS: HALOPERIDOL LACTATE 5 MG/ML AMP IV PRN ×2 (01:23→19:47)
[2017-05-18] MEDS: LORazepam 2 MG/ML VIAL IV PUSH PRN ×5 (02:10→22:10)
[2017-05-18] MEDS: CHLORHEXIDINE GLUCONATE 2 % 1 PACK (2 CLOTHS) TOP SCH (02:44)
[2017-05-18] MEDS: RESP: ALBUTEROL 2.5 MG/IPRATROPIUM 0.5 MG NEB (SCH) INH (03:04)
[2017-05-18] MEDS: INSULIN NovoLIN REGULAR SUPPLEMENTAL SCALE SQ SCH ×5 (04:00→16:00)
[2017-05-18 04:07] LABS: HEMATOCRIT 35.5 % (39.0-51.0); MEAN CELL VOLUME 90.8 FL (80.0-100.0); MEAN CORPUSCULAR HEMOGLOBIN 31.6 PG (27.0-34.0); MEAN CORPUSCULAR HGB CONC 34.8 % (32.0-36.0); PLATELET COUNT 198 TH/MM3 (150-450); RED BLOOD COUNT 3.91 MIL/MM3 (4.50-5.90); RED CELL DISTRIBUTION WIDTH 14.7 % (11.6-17.2); REVIEW FLAG FINAL; WHITE BLOOD COUNT 8.2 TH/MM3 (4.0-11.0)
[2017-05-18 04:31] LABS: BICARBONATE 25.5 MEQ/L (21.0-32.0); POTASSIUM 3.4 MEQ/L (3.5-5.1)
[2017-05-18] MEDS: DIAZEPAM 10 MG TAB PO SCH ×3 (06:22→22:09)
[2017-05-18] MEDS: cloNIDine HCL 0.2 MG TAB PO SCH ×3 (06:22→22:09)
[2017-05-18] MEDS: HEPARIN SODIUM - SQ 10,000 UNITS/ML VIAL SQ SCH ×2 (09:00→22:10)
[2017-05-18] MEDS: DOCUSATE SODIUM 50 MG/SENNA 8.6 MG TAB PO SCH ×2 (09:00→22:09)
--- NOTE | 2017-05-18 09:25 | HHI.PR ---
Subjective Remarks Follow-up polysubstance abuse, pneumonia. The patient is alert and eating with the assistance of the nurse. He is in soft restraints. He states that he feels better today. No specific complaints at this time. Objective Vitals Vital Signs Date Time Temp Pulse Resp B/P (MAP) Pulse Ox O2 Delivery O2 Flow Rate FiO2 05/18/17 07:39 97 Nasal Cannula 3.00 05/18/17 06:00 101 05/18/17 04:00 103 05/18/17 04:00 98.5 103 18 138/91 (107) 95 05/18/17 02:00 96 05/18/17 00:00 97 05/18/17 00:00 98.6 97 19 129/83 (98) 96 05/17/17 22:00 103 05/17/17 20:00 94 05/17/17 20:00 98.6 94 20 124/84 (97) 95 05/17/17 19:43 96 Nasal Cannula 3.00 05/17/17 18:00 92 05/17/17 16:00 92 05/17/17 16:00 91 118/82 (94) 92 05/17/17 14:00 92 05/17/17 12:00 92 05/17/17 12:00 91 116/84 (95) 92 05/17/17 10:30 93 05/17/17 10:30 93 05/17/17 10:15 94 05/17/17 10:15 94 05/17/17 10:09 96 131/86 (101) 89 05/17/17 10:09 96 05/17/17 10:00 92 05/17/17 10:00 92 05/17/17 09:45 85 05/17/17 09:45 85 05/17/17 09:30 85 05/17/17 09:30 85 81 05/17/17 09:15 86 05/17/17 09:15 86 I/O 05/17/17 05/17/17 05/17/17 05/18/17 05/18/17 05/18/17 06:59 14:59 22:59 06:59 14:59 22:59 Intake Total 950 ml 2017.5 ml 900 ml Output Total 2350 ml 1250 ml 500 ml Balance -1400 ml 767.5 ml 400 ml Intake Oral 600 ml 450 ml 800 ml IV Total 350 ml 1567.5 ml 100 ml Output Urine Total 2350 ml 1250 ml 500 ml # Voids 2 # Bowel Movements 0 0 1 Result Diagram: 05/18/17 0346 05/18/17 0346 Imaging Last Impressions Chest X-Ray 05/17/17 0600 Signed Impressions: Service Date/Time: Wednesday, May 17, 2017 04:02 - CONCLUSION: Slight improvement in aeration. Javi Funes MD Head CT 05/14/17 0000 Signed Impressions: Service Date/Time: Sunday, May 14, 2017 03:56 - CONCLUSION: No acute disease. Harry Crooks Jr., MD Objective Remarks General: Disheveled male in no acute distress. In soft restraints. Heart: Regular rate and rhythm. No murmur. Lungs: Crackles on the left. Breathing is nonlabored. Abdomen: Soft, nontender, nondistended. Extremities: No lower extremity edema. Psych: Alert, answers questions appropriately, but does appear somewhat confused. Procedures None. Urinary Catheter: No Vascular Central Line Catheter: No A/P Problem List: (1) Acute delirium ICD Code: R41.0 - Disorientation, unspecified (2) Pneumonia ICD Code: J18.9 - Pneumonia, unspecified organism Status: Acute (3) Polysubstance abuse ICD Code: F19.10 - Other psychoactive substance abuse, uncomplicated Status: Acute Assessment and Plan 1. Acute delirium, polysubstance abuse: Urine drug screen positive for opioids, benzodiazepines. Continue clonidine, diazepam. CIWA protocol. Wean off restraints as able. 2. Pneumonia, likely aspiration versus community-acquired: Continue Levaquin. Sputum growing Streptococcus pneumonia. Patient is afebrile. Add Flagyl. Discontinue Zosyn. Appreciate pulmonology recommendations. 3. DVT prophylaxis: Heparin. Luke Warren MD May 18, 2017 09:25
[2017-05-18] MEDS: THIAMINE HCL 100 MG TAB PO SCH (10:11)
[2017-05-18] MEDS: TAMSULOSIN HCL 0.4 MG CAP PO SCH (10:11)
[2017-05-18] MEDS: FAMOTIDINE 20 MG TAB NG SCH ×2 (10:11→22:09)
[2017-05-18] MEDS: FOLIC ACID 1 MG TAB PO SCH (10:11)
[2017-05-18] MEDS: MULTIVITAMIN TAB PO SCH (10:11)
[2017-05-18] MEDS: metroNIDAZOLE 500 MG TAB PO SCH ×2 (13:47→22:09)
[2017-05-18] MEDS: LEVOFLOXACIN 750 MG TAB PO SCH (13:48)
[2017-05-19] VITALS (13 sets, daily range): BP systolic 111–139; BP diastolic 64–85; PULSE 74–95; TEMP 97.5–98.7; O2SAT 88–96
[2017-05-19] MEDS: HALOPERIDOL LACTATE 5 MG/ML AMP IV PRN ×4 (00:02→22:43)
[2017-05-19] MEDS: LORazepam 2 MG/ML VIAL IV PUSH PRN ×2 (02:20→05:05)
[2017-05-19] MEDS: CHLORHEXIDINE GLUCONATE 2 % 1 PACK (2 CLOTHS) TOP SCH (04:00)
[2017-05-19] MEDS: INSULIN NovoLIN REGULAR SUPPLEMENTAL SCALE SQ SCH ×6 (04:00→20:00)
[2017-05-19] MEDS: metroNIDAZOLE 500 MG TAB PO SCH ×3 (04:35→20:52)
[2017-05-19] MEDS: DIAZEPAM 10 MG TAB PO SCH ×3 (04:35→20:52)
[2017-05-19] MEDS: cloNIDine HCL 0.2 MG TAB PO SCH ×3 (04:35→20:52)
[2017-05-19 08:43] LABS: HEMATOCRIT 35.5 % (39.0-51.0); MEAN CELL VOLUME 90.8 FL (80.0-100.0); MEAN CORPUSCULAR HEMOGLOBIN 30.4 PG (27.0-34.0); MEAN CORPUSCULAR HGB CONC 33.5 % (32.0-36.0); PLATELET COUNT 240 TH/MM3 (150-450); RED BLOOD COUNT 3.91 MIL/MM3 (4.50-5.90); RED CELL DISTRIBUTION WIDTH 14.3 % (11.6-17.2); REVIEW FLAG FINAL; WHITE BLOOD COUNT 8.6 TH/MM3 (4.0-11.0)
[2017-05-19 09:11] LABS: BICARBONATE 24.6 MEQ/L (21.0-32.0); POTASSIUM 3.5 MEQ/L (3.5-5.1)
[2017-05-19] MEDS: DOCUSATE SODIUM 50 MG/SENNA 8.6 MG TAB PO SCH ×2 (09:59→20:52)
[2017-05-19] MEDS: FOLIC ACID 1 MG TAB PO SCH (09:59)
[2017-05-19] MEDS: THIAMINE HCL 100 MG TAB PO SCH (09:59)
[2017-05-19] MEDS: MULTIVITAMIN TAB PO SCH (10:00)
[2017-05-19] MEDS: TAMSULOSIN HCL 0.4 MG CAP PO SCH (10:00)
[2017-05-19] MEDS: FAMOTIDINE 20 MG TAB NG SCH ×2 (10:00→20:53)
[2017-05-19] MEDS: HEPARIN SODIUM - SQ 10,000 UNITS/ML VIAL SQ SCH ×2 (10:00→20:53)
--- NOTE | 2017-05-19 15:37 | HHI.PR ---
Subjective Remarks Follow-up pneumonia, encephalopathy. Patient is more alert today. He is less confused. He states that he feels much better. Restraints have been off since last night. Objective Vitals Vital Signs Date Time Temp Pulse Resp B/P (MAP) Pulse Ox O2 Delivery O2 Flow Rate FiO2 05/19/17 08:11 96 Nasal Cannula 3.00 05/19/17 06:00 74 05/19/17 04:00 98.7 80 139/85 (103) 88 05/19/17 04:00 80 05/19/17 02:00 85 05/19/17 02:00 85 05/19/17 00:00 88 05/19/17 00:00 98.5 88 123/73 (90) 91 05/18/17 22:00 89 05/18/17 20:17 97 05/18/17 20:00 98 05/18/17 20:00 98 128/72 (90) 05/18/17 18:00 96 05/18/17 16:00 91 124/72 (89) 05/18/17 16:00 100 I/O 05/18/17 05/18/17 05/18/17 05/19/17 05/19/17 05/19/17 07:00 15:00 23:00 07:00 15:00 23:00 Intake Total 900 ml 900 ml 240 ml Output Total 500 ml 1000 ml 2600 ml Balance 400 ml -100 ml -2360 ml Intake Oral 800 ml 800 ml 240 ml IV Total 100 ml 100 ml Output Urine Total 500 ml 1000 ml 2600 ml # Voids 2 # Bowel Movements 1 1 Result Diagram: 05/19/172 05/19/17 0442 Imaging Last Impressions Chest X-Ray 05/17/17 0600 Signed Impressions: Service Date/Time: Wednesday, May 17, 2017 04:02 - CONCLUSION: Slight improvement in aeration. Javi Funes MD Head CT 05/14/17 0000 Signed Impressions: Service Date/Time: Sunday, May 14, 2017 03:56 - CONCLUSION: No acute disease. Harry Crooks Jr., MD Objective Remarks General: Disheveled male in no acute distress. In soft restraints. Heart: Regular rate and rhythm. No murmur. Lungs: Crackles on the left. Breathing is nonlabored. Abdomen: Soft, nontender, nondistended. Extremities: No lower extremity edema. Psych: Sleeping, but awakens easily and answers questions appropriately. Procedures None. Urinary Catheter: No Vascular Central Line Catheter: No A/P Problem List: (1) Acute delirium ICD Code: R41.0 - Disorientation, unspecified (2) Pneumonia ICD Code: J18.9 - Pneumonia, unspecified organism Status: Acute (3) Polysubstance abuse ICD Code: F19.10 - Other psychoactive substance abuse, uncomplicated Status: Acute Assessment and Plan 1. Encephalopathy, polysubstance abuse: Urine drug screen positive for opioids, benzodiazepines. Continue clonidine, diazepam. [facility] protocol. Improving. 2. Pneumonia, likely aspiration versus community-acquired: Continue Levaquin, Flagyl. Sputum growing Streptococcus pneumonia. Patient is afebrile. Appreciate pulmonology recommendations. 3. DVT prophylaxis: Heparin. Luke Warren MD May 19, 2017 15:37
[2017-05-19] MEDS: LEVOFLOXACIN 750 MG TAB PO SCH (17:00)
[2017-05-20] VITALS (13 sets, daily range): BP systolic 86–126; BP diastolic 55–82; PULSE 73–101; RESP 19–20; TEMP 97.8–98.1; O2SAT 94–96
[2017-05-20] MEDS: CHLORHEXIDINE GLUCONATE 2 % 1 PACK (2 CLOTHS) TOP SCH (02:43)
[2017-05-20] MEDS: INSULIN NovoLIN REGULAR SUPPLEMENTAL SCALE SQ SCH ×5 (04:00→20:00)
[2017-05-20] MEDS: cloNIDine HCL 0.2 MG TAB PO SCH ×3 (04:35→20:59)
[2017-05-20] MEDS: metroNIDAZOLE 500 MG TAB PO SCH ×3 (04:36→20:59)
[2017-05-20] MEDS: DIAZEPAM 10 MG TAB PO SCH ×3 (04:36→20:59)
[2017-05-20 07:05] LABS: MEAN CORPUSCULAR HEMOGLOBIN 30.2 PG (27.0-34.0); MEAN CORPUSCULAR HGB CONC 33.6 % (32.0-36.0); PLATELET COUNT 304 TH/MM3 (150-450); RED CELL DISTRIBUTION WIDTH 14.5 % (11.6-17.2); REVIEW FLAG FINAL; WHITE BLOOD COUNT 7.2 TH/MM3 (4.0-11.0)
[2017-05-20] MEDS: DOCUSATE SODIUM 50 MG/SENNA 8.6 MG TAB PO SCH ×2 (08:29→20:59)
[2017-05-20] MEDS: MULTIVITAMIN TAB PO SCH (08:29)
[2017-05-20] MEDS: ACETAMINOPHEN 325 MG TAB PO PRN (08:29)
[2017-05-20] MEDS: FOLIC ACID 1 MG TAB PO SCH (08:29)
[2017-05-20] MEDS: FAMOTIDINE 20 MG TAB NG SCH ×2 (08:29→20:59)
[2017-05-20] MEDS: TAMSULOSIN HCL 0.4 MG CAP PO SCH (08:30)
[2017-05-20] MEDS: THIAMINE HCL 100 MG TAB PO SCH (08:30)
[2017-05-20] MEDS: HEPARIN SODIUM - SQ 10,000 UNITS/ML VIAL SQ SCH ×2 (08:30→21:00)
[2017-05-20 08:41] LABS: BICARBONATE 24.2 MEQ/L (21.0-32.0); POTASSIUM 3.5 MEQ/L (3.5-5.1)
--- NOTE | 2017-05-20 09:32 | HHI.PR ---
Subjective Remarks Follow up pneumonia, encephalopathy. Patient has been trying to ambulate on the unit. He reports ongoing dyspnea, cough. Denies chest pain. Objective Vitals Vital Signs Date Time Temp Pulse Resp B/P (MAP) Pulse Ox O2 Delivery O2 Flow Rate FiO2 05/20/17 07:58 94 Nasal Cannula 3.00 05/20/17 06:00 78 05/20/17 04:00 83 05/20/17 04:00 97.9 83 98/55 (69) 05/20/17 02:00 73 05/20/17 02:00 76 05/20/17 00:00 98.0 73 111/67 (82) 05/20/17 00:00 73 05/19/17 22:00 84 05/19/17 20:00 97.8 88 115/73 (87) 93 05/19/17 20:00 88 05/19/17 18:00 80 05/19/17 16:00 97.5 85 111/64 (80) 05/19/17 16:00 85 05/19/17 14:00 92 05/19/17 12:00 97.8 85 112/64 (80) 95 05/19/17 12:00 95 05/19/17 10:00 81 I/O 05/19/17 05/19/17 05/19/17 05/20/17 05/20/17 05/20/17 07:00 15:00 23:00 07:00 15:00 23:00 Intake Total 240 ml 860 ml 720 ml Output Total 2600 ml 850 ml 3200 ml Balance -2360 ml 10 ml -2480 ml Intake Oral 240 ml 860 ml 720 ml Output Urine Total 2600 ml 850 ml 3200 ml # Bowel Movements 0 Result Diagram: 05/20/17 0533 05/20/17 0533 Imaging Last Impressions Chest X-Ray 05/17/17 0600 Signed Impressions: Service Date/Time: Wednesday, May 17, 2017 04:02 - CONCLUSION: Slight improvement in aeration. Javi Funes MD Head CT 05/14/17 0000 Signed Impressions: Service Date/Time: Sunday, May 14, 2017 03:56 - CONCLUSION: No acute disease. Harry Crooks Jr., MD Objective Remarks General: Disheveled male in no acute distress. Heart: Regular rate and rhythm. No murmur. Lungs: Bilateral rhonchi. Breathing is nonlabored. Abdomen: Soft, nontender, nondistended. Extremities: No lower extremity edema. Psych: Alert, answers questions appropriately. Procedures None. Urinary Catheter: No Vascular Central Line Catheter: No A/P Problem List: (1) Acute delirium ICD Code: R41.0 - Disorientation, unspecified (2) Pneumonia ICD Code: J18.9 - Pneumonia, unspecified organism Status: Acute (3) Polysubstance abuse ICD Code: F19.10 - Other psychoactive substance abuse, uncomplicated Status: Acute Assessment and Plan 1. Encephalopathy, polysubstance abuse: Urine drug screen positive for opioids, benzodiazepines. Continue clonidine, diazepam. [facility] protocol -- last required lorazepam 24 hours ago. Improving. 2. Pneumonia, likely aspiration versus community-acquired: Continue Levaquin, Flagyl. Sputum growing Streptococcus pneumonia. Patient is afebrile. Appreciate pulmonology recommendations. Add Mucinex. 3. DVT prophylaxis: Heparin. Luke Warren MD May 20, 2017 09:32
[2017-05-20] MEDS: guaiFENesin E.R. 600 MG TAB PO SCH ×2 (10:49→20:59)
[2017-05-20] MEDS: LEVOFLOXACIN 750 MG TAB PO SCH (14:57)
[2017-05-20] MEDS: LORazepam 1 MG TAB PO PRN ×2 (15:04→20:59)
[2017-05-21] VITALS (10 sets, daily range): BP systolic 108–135; BP diastolic 66–84; PULSE 74–87; RESP 17–20; TEMP 97.6–98.6; O2SAT 93–98
[2017-05-21] MEDS: metroNIDAZOLE 500 MG TAB PO SCH ×3 (02:08→21:09)
[2017-05-21] MEDS: LORazepam 1 MG TAB PO PRN ×4 (02:08→23:28)
[2017-05-21] MEDS: INSULIN NovoLIN REGULAR SUPPLEMENTAL SCALE SQ SCH ×6 (04:00→20:00)
[2017-05-21] MEDS: CHLORHEXIDINE GLUCONATE 2 % 1 PACK (2 CLOTHS) TOP SCH (04:00)
[2017-05-21] MEDS: cloNIDine HCL 0.2 MG TAB PO SCH ×3 (05:18→21:10)
[2017-05-21] MEDS: DIAZEPAM 10 MG TAB PO SCH ×3 (05:18→21:10)
[2017-05-21 05:54] LABS: HEMATOCRIT 36.3 % (39.0-51.0); MEAN CELL VOLUME 90.1 FL (80.0-100.0); MEAN CORPUSCULAR HEMOGLOBIN 30.4 PG (27.0-34.0); MEAN CORPUSCULAR HGB CONC 33.7 % (32.0-36.0); PLATELET COUNT 358 TH/MM3 (150-450); RED BLOOD COUNT 4.03 MIL/MM3 (4.50-5.90); RED CELL DISTRIBUTION WIDTH 14.2 % (11.6-17.2); REVIEW FLAG FINAL; WHITE BLOOD COUNT 8.4 TH/MM3 (4.0-11.0)
[2017-05-21 06:16] LABS: BICARBONATE 24.8 MEQ/L (21.0-32.0); POTASSIUM 3.7 MEQ/L (3.5-5.1)
[2017-05-21] MEDS: LORazepam 2 MG/ML VIAL IV PUSH PRN (06:31)
[2017-05-21] MEDS: THIAMINE HCL 100 MG TAB PO SCH (08:26)
[2017-05-21] MEDS: MULTIVITAMIN TAB PO SCH (08:26)
[2017-05-21] MEDS: FOLIC ACID 1 MG TAB PO SCH (08:26)
[2017-05-21] MEDS: FAMOTIDINE 20 MG TAB NG SCH ×2 (08:26→21:09)
[2017-05-21] MEDS: guaiFENesin E.R. 600 MG TAB PO SCH ×2 (08:27→21:10)
[2017-05-21] MEDS: DOCUSATE SODIUM 50 MG/SENNA 8.6 MG TAB PO SCH ×2 (08:27→21:00)
[2017-05-21] MEDS: TAMSULOSIN HCL 0.4 MG CAP PO SCH (08:27)
[2017-05-21] MEDS: HEPARIN SODIUM - SQ 10,000 UNITS/ML VIAL SQ SCH ×2 (08:28→21:09)
[2017-05-21] MEDS: LEVOFLOXACIN 750 MG TAB PO SCH (13:22)
--- NOTE | 2017-05-21 14:52 | HHI.PR ---
Subjective Remarks Follow up pneumonia. Patient reports chest pain with coughing, deep breaths. He has chest congestion. He states "this pneumonia is kicking my butt". He feels weak overall. Objective Vitals Vital Signs Date Time Temp Pulse Resp B/P (MAP) Pulse Ox O2 Delivery O2 Flow Rate FiO2 05/21/17 13:30 84 05/21/17 12:00 98.0 79 17 135/78 (97) 98 05/21/17 08:00 98.3 78 19 111/73 (86) 97 05/21/17 05:00 97.9 82 17 116/66 (83) 93 05/21/17 01:30 80 05/21/17 00:45 97.6 80 20 120/84 (96) 96 05/21/17 00:00 98.0 86 05/21/17 00:00 86 05/20/17 22:00 83 05/20/17 20:00 86 05/20/17 20:00 97.9 86 126/71 (89) 95 05/20/17 18:00 85 05/20/17 16:00 97.8 87 19 86/55 (65) 96 05/20/17 16:00 84 I/O 05/20/17 05/20/17 05/20/17 05/21/17 05/21/17 05/21/17 07:00 15:00 23:00 07:00 15:00 23:00 Intake Total 720 ml 720 ml 400 ml Output Total 3200 ml 1600 ml 0 ml Balance -2480 ml -880 ml 400 ml Intake Oral 720 ml 720 ml 400 ml Output Urine Total 3200 ml 1600 ml 0 ml # Bowel Movements 0 Result Diagram: 05/21/17 0536 05/21/17 0526 Imaging Last Impressions Chest X-Ray 05/17/17 0600 Signed Impressions: Service Date/Time: Wednesday, May 17, 2017 04:02 - CONCLUSION: Slight improvement in aeration. Javi Funes MD Head CT 05/14/17 0000 Signed Impressions: Service Date/Time: Sunday, May 14, 2017 03:56 - CONCLUSION: No acute disease. Harry Crooks Jr., MD Objective Remarks General: No acute distress. Heart: Regular rate and rhythm. No murmur. Lungs: Bilateral rhonchi, left>right. Breathing is nonlabored. Abdomen: Soft, nontender, nondistended. Extremities: No lower extremity edema. Psych: Alert, answers questions appropriately. Procedures None. Urinary Catheter: No Vascular Central Line Catheter: No A/P Problem List: (1) Acute delirium ICD Code: R41.0 - Disorientation, unspecified (2) Pneumonia ICD Code: J18.9 - Pneumonia, unspecified organism Status: Acute (3) Polysubstance abuse ICD Code: F19.10 - Other psychoactive substance abuse, uncomplicated Status: Acute Assessment and Plan 1. Encephalopathy, polysubstance abuse: Urine drug screen positive for opioids, benzodiazepines. Continue clonidine, diazepam. [facility] protocol -- last required lorazepam 24 hours ago. Mental status improved. 2. Pneumonia, likely aspiration versus community-acquired: Continue Levaquin, Flagyl. Sputum growing Streptococcus pneumonia. Patient is afebrile. Appreciate pulmonology recommendations. Continue Mucinex. Recheck CXR. Add bronchodilators , Solu-Medrol. 3. DVT prophylaxis: Heparin. Luke Warren MD May 21, 2017 14:52
[2017-05-21] MEDS: methylPREDNISolone SOD SUCC 40 MG/1 ML VIAL IV PUSH SCH ×2 (15:30→23:28)
--- NOTE | 2017-05-21 15:55 | RADRPT ---
EXAM DATE/TIME: 05/21/2017 14:50 [facility] COMPARISON: CHEST SINGLE AP, May 17, 2017, 4:02. INDICATIONS : Shortness of breath and cough. MEDICAL HISTORY : None. SURGICAL HISTORY : None. ENCOUNTER: Initial ACUITY: 1 day PAIN SCORE: 0/10 LOCATION: Bilateral chest FINDINGS: The cardiac silhouette is enlarged in transverse diameter. There is prominence of the central pulmona ry vasculature with indistinct vascular margins compatible with vascular congestion but no evidence o f overt failure. The findings are improved when compared with the prior exam. No pleural effusions ar e identified. CONCLUSION: 1. Cardiomegaly and findings of vascular congestion without overt failure. This is significantly impr gopi when compared with the prior study Mayank Charles MD on May 21, 2017 at 15:49 Board Certified Radiologist. This report was verified electronically.
[2017-05-21] MEDS: RESP: ALBUTEROL 2.5 MG/IPRATROPIUM 0.5 MG NEB (SCH) NEB ×2 (16:17→19:08)
[2017-05-21] MEDS: RESP: ALBUTEROL 2.5 MG/3 ML NEB (SCH) NEB ×2 (22:00→23:54)
[2017-05-22] VITALS (8 sets, daily range): BP systolic 98–132; BP diastolic 56–76; PULSE 75–95; RESP 17–20; TEMP 97.6–98.8; O2SAT 94–98
[2017-05-22] MEDS: RESP: ALBUTEROL 2.5 MG/3 ML NEB (SCH) NEB ×3 (02:00→06:00)
[2017-05-22] MEDS: LORazepam 1 MG TAB PO PRN ×3 (03:37→23:50)
[2017-05-22] MEDS: metroNIDAZOLE 500 MG TAB PO SCH ×3 (03:37→20:20)
[2017-05-22] MEDS: INSULIN NovoLIN REGULAR SUPPLEMENTAL SCALE SQ SCH ×7 (03:53→23:45)
[2017-05-22] MEDS: CHLORHEXIDINE GLUCONATE 2 % 1 PACK (2 CLOTHS) TOP SCH (04:00)
[2017-05-22] MEDS: methylPREDNISolone SOD SUCC 40 MG/1 ML VIAL IV PUSH SCH ×3 (05:32→23:45)
[2017-05-22] MEDS: DIAZEPAM 10 MG TAB PO SCH ×3 (05:32→20:20)
[2017-05-22] MEDS: cloNIDine HCL 0.2 MG TAB PO SCH ×3 (05:32→20:20)
[2017-05-22] MEDS: RESP: ALBUTEROL 2.5 MG/IPRATROPIUM 0.5 MG NEB (SCH) NEB ×4 (06:54→19:02)
[2017-05-22 07:11] LABS: HEMATOCRIT 38.1 % (39.0-51.0); MEAN CORPUSCULAR HEMOGLOBIN 30.7 PG (27.0-34.0); MEAN CORPUSCULAR HGB CONC 34.1 % (32.0-36.0); PLATELET COUNT 457 TH/MM3 (150-450); RED BLOOD COUNT 4.23 MIL/MM3 (4.50-5.90); RED CELL DISTRIBUTION WIDTH 14.5 % (11.6-17.2); REVIEW FLAG FINAL; WHITE BLOOD COUNT 8.8 TH/MM3 (4.0-11.0)
[2017-05-22 07:35] LABS: BICARBONATE 21.8 MEQ/L (21.0-32.0); POTASSIUM 4.3 MEQ/L (3.5-5.1)
[2017-05-22] MEDS: FOLIC ACID 1 MG TAB PO SCH (09:33)
[2017-05-22] MEDS: MULTIVITAMIN TAB PO SCH (09:33)
[2017-05-22] MEDS: DOCUSATE SODIUM 50 MG/SENNA 8.6 MG TAB PO SCH ×2 (09:33→20:20)
[2017-05-22] MEDS: guaiFENesin E.R. 600 MG TAB PO SCH ×2 (09:33→20:20)
[2017-05-22] MEDS: THIAMINE HCL 100 MG TAB PO SCH (09:33)
[2017-05-22] MEDS: FAMOTIDINE 20 MG TAB NG SCH ×2 (09:34→20:20)
[2017-05-22] MEDS: TAMSULOSIN HCL 0.4 MG CAP PO SCH (09:34)
[2017-05-22] MEDS: HEPARIN SODIUM - SQ 10,000 UNITS/ML VIAL SQ SCH ×2 (09:34→20:21)
--- NOTE | 2017-05-22 11:32 | HHI.PR ---
Subjective Remarks Follow-up pneumonia. Patient states that he is feeling much better today. He has been ambulating in the halls. Denies chest pain or dyspnea at this time. Objective Vitals Vital Signs Date Time Temp Pulse Resp B/P (MAP) Pulse Ox O2 Delivery O2 Flow Rate FiO2 05/22/17 09:28 78 05/22/17 08:00 98.5 95 17 98/62 (74) 98 05/22/17 05:50 98.0 75 20 132/76 (94) 96 05/22/17 01:04 97.9 82 20 100/62 (75) 97 05/21/17 21:16 98.0 87 20 115/70 (85) 96 05/21/17 16:17 93 21 05/21/17 16:00 98.6 74 18 108/68 (81) 98 05/21/17 13:30 84 05/21/17 12:00 98.0 79 17 135/78 (97) 98 I/O 05/21/17 05/21/17 05/21/17 05/22/17 05/22/17 05/22/17 07:00 15:00 23:00 07:00 15:00 23:00 Intake Total 400 ml 980 ml Output Total 0 ml Balance 400 ml 980 ml Intake Oral 400 ml 980 ml Output Urine Total 0 ml # Bowel Movements 0 Result Diagram: 05/22/17 0640 05/22/17 0640 Imaging Last Impressions Chest X-Ray 05/21/17 0000 Signed Impressions: Service Date/Time: Sunday, May 21, 2017 14:50 - CONCLUSION: 1. Cardiomegaly and findings of vascular congestion without overt failure. This is significantly improved when compared with the prior study Mayank Charles MD Head CT 05/14/17 0000 Signed Impressions: Service Date/Time: Sunday, May 14, 2017 03:56 - CONCLUSION: No acute disease. Harry Crooks Jr., MD Objective Remarks General: No acute distress. Heart: Regular rate and rhythm. No murmur. Lungs: Bilateral rhonchi, left>right, slightly better today. Breathing is nonlabored. Abdomen: Soft, nontender, nondistended. Extremities: No lower extremity edema. Psych: Alert, answers questions appropriately. Procedures None. Urinary Catheter: No Vascular Central Line Catheter: No A/P Problem List: (1) Acute delirium ICD Code: R41.0 - Disorientation, unspecified (2) Pneumonia ICD Code: J18.9 - Pneumonia, unspecified organism Status: Acute (3) Polysubstance abuse ICD Code: F19.10 - Other psychoactive substance abuse, uncomplicated Status: Acute Assessment and Plan 1. Encephalopathy, polysubstance abuse: Urine drug screen positive for opioids, benzodiazepines. Continue clonidine, diazepam. [facility] protocol. Mental status improved. 2. Pneumonia, likely aspiration versus community-acquired: Continue Levaquin, Flagyl. Sputum growing Streptococcus pneumonia. Patient is afebrile. Appreciate pulmonology recommendations. Continue Mucinex, bronchodilators, Solu-Medrol. 3. DVT prophylaxis: Heparin. Discharge Planning Possible discharge home next 1-2 days if patient continues to improve clinically. Luke Warren MD May 22, 2017 11:32
[2017-05-22] MEDS ORDERED: RESP: ALBUTEROL 2.5 MG/3 ML NEB (PRN) INH (12:00)
[2017-05-22] MEDS: LEVOFLOXACIN 750 MG TAB PO SCH (15:08)
[2017-05-23 01:13] VITALS: BP 94/58; PULSE 76; RESP 20; TEMP 97.6; O2SAT 97
[2017-05-23] MEDS: CHLORHEXIDINE GLUCONATE 2 % 1 PACK (2 CLOTHS) TOP SCH (03:39)
[2017-05-23] MEDS: metroNIDAZOLE 500 MG TAB PO SCH ×2 (03:59→12:11)
[2017-05-23] MEDS: INSULIN NovoLIN REGULAR SUPPLEMENTAL SCALE SQ SCH ×3 (04:00→12:00)
[2017-05-23] MEDS: cloNIDine HCL 0.2 MG TAB PO SCH ×2 (05:05→14:23)
[2017-05-23] MEDS: DIAZEPAM 10 MG TAB PO SCH ×2 (05:05→14:23)
[2017-05-23] MEDS: methylPREDNISolone SOD SUCC 40 MG/1 ML VIAL IV PUSH SCH (05:06)
[2017-05-23 05:40] VITALS: BP 123/74; PULSE 73; RESP 20; TEMP 98.2; O2SAT 96
[2017-05-23] MEDS: RESP: ALBUTEROL 2.5 MG/IPRATROPIUM 0.5 MG NEB (SCH) NEB ×2 (07:20→11:33)
[2017-05-23 07:40] VITALS: PULSE 80
[2017-05-23 08:00] VITALS: BP 94/54; PULSE 86; RESP 16; TEMP 97.2; O2SAT 93
[2017-05-23] MEDS: FAMOTIDINE 20 MG TAB NG SCH (08:55)
[2017-05-23] MEDS: MULTIVITAMIN TAB PO SCH (08:55)
[2017-05-23] MEDS: FOLIC ACID 1 MG TAB PO SCH (08:56)
[2017-05-23] MEDS: TAMSULOSIN HCL 0.4 MG CAP PO SCH (08:56)
[2017-05-23] MEDS: HEPARIN SODIUM - SQ 10,000 UNITS/ML VIAL SQ SCH (08:56)
[2017-05-23] MEDS: THIAMINE HCL 100 MG TAB PO SCH (08:56)
[2017-05-23] MEDS: guaiFENesin E.R. 600 MG TAB PO SCH (08:56)
[2017-05-23] MEDS: DOCUSATE SODIUM 50 MG/SENNA 8.6 MG TAB PO SCH (08:56)
[2017-05-23] MEDS ORDERED: FOLI1TAB6 PO (11:06)
[2017-05-23] MEDS ORDERED: CHLO10CA5 PO (11:06)
[2017-05-23] MEDS ORDERED: THERTAB15 PO (11:06)
[2017-05-23] MEDS ORDERED: PRED5PAK PO (11:06)
[2017-05-23] MEDS ORDERED: LEVA750T9 PO (11:06)
[2017-05-23] MEDS ORDERED: METR-1 PO (11:06)
[2017-05-23] MEDS ORDERED: CLON0.1T PO (11:06)
[2017-05-23] MEDS ORDERED: GNP100TA3 PO (11:06)
--- NOTE | 2017-05-23 11:07 | HHI.DCPOC ---
Discharge Care Plan Diagnosis: (1) Polysubstance abuse (2) Acute delirium (3) Pneumonia (4) Hypoxia Goals to Promote Your Health * To prevent worsening of your condition and complications * To maintain your health at the optimal level Directions to Meet Your Goals Take your medications as prescribed Follow your dietary instruction Follow activity as directed Keep your appointments as scheduled Take your immunizations and boosters as scheduled If your symptoms worsen call your PCP, if no PCP go to Urgent Care Center or Emergency Room Smoking is Dangerous to Your Health. Avoid second hand smoke Call the 24-hour hour crisis hotline for domestic abuse at Luke Warren MD May 23, 2017 11:07
--- NOTE | 2017-05-23 11:13 | HHI.DS ---
Discharge Summary Admission Date May 14, 2017 at 01:29 Discharge Date: May 23, 2017 Admitting Diagnosis opiate overdose/pneumonia/hypoxia (1) Acute delirium ICD Code: R41.0 - Disorientation, unspecified (2) Pneumonia ICD Code: J18.9 - Pneumonia, unspecified organism Status: Acute (3) Polysubstance abuse ICD Code: F19.10 - Other psychoactive substance abuse, uncomplicated Status: Acute Procedures None. Brief History - From Admission The patient is a 56-year-old male with past medical history bronchial asthma, polysubstance abuse, EtOH use who presented to [facility] emergency department after he was brought in by EMS found by his family unresponsive. Per emergency department records patient had vomitus around his mouth and face when EMS found him. He was given Narcan and he did wake up somewhat. He was lethargic upon arrival to the emergency department and given additional doses of Narcan. He reported taking 2 tablets of oxycodone in addition to drinking 6- 18 beers per day. He was tachycardic upon arrival to the ER. He was placed on nonrebreather mask. ABG was ordered. Chest x-ray showed consolidation in the medial right lung base with mild interstitial prominence in the left lung base. He was given 1 L of normal saline. He was started on IV antibiotics in the ER. CBC/BMP: 05/22/17 0640 05/22/17 0640 Significant Findings Laboratory Tests Test 05/21/17 05:26 05/21/17 05:36 05/22/17 06:40 Chloride Level 108 MEQ/L (98-107) Red Blood Count 4.03 MIL/MM3 (4.50-5.90) 4.23 MIL/MM3 (4.50-5.90) Hemoglobin 12.2 GM/DL (13.0-17.0) Hematocrit 36.3 % (39.0-51.0) 38.1 % (39.0-51.0) Platelet Count 457 TH/MM3 (150-450) Random Glucose 131 MG/DL (74-106) PE at Discharge General: No acute distress. Heart: Regular rate and rhythm. No murmur. Lungs: Bilateral rhonchi, left>right, slightly better today. Breathing is nonlabored. Abdomen: Soft, nontender, nondistended. Extremities: No lower extremity edema. Psych: Alert, answers questions appropriately. Pt update on day of discharge The patient has no complaints at this time. He has been ambulating without difficulty. No shortness of breath or chest pain. He wants to go home. Hospital Course The patient was admitted to the critical care service for acute respiratory insufficiency and treatment of aspiration pneumonia. He was treated for alcohol and opiate withdrawal. He was continued on antibiotics. His mental status improved significantly throughout the hospitalization. He continued to show improvement in his clinical status including respiratory. He was felt to be stable for discharge home on oral antibiotics. The patient contacted inpatient rehabilitation facilities to voluntarily seek drug/alcohol rehabilitation. His family was contacted by case management and agreed to help with transportation and arrangement of rehabilitation. Pt Condition on Discharge: Stable Discharge Disposition: Discharge Home Discharge Time: > 30 minutes Discharge Instructions DIET: Follow Instructions for: As Tolerated, No Restrictions Activities you can perform: Regular-No Restrictions Follow up Referrals: Drug/Alcohol Rehab PCP Follow-up - 1 Week Pulmonology - 1 Week with Shahbaz Monsalve MD New Medications: Chlordiazepoxide HCl (Chlordiazepoxide HCl) 10 Mg Capsule 10 MG PO DIRECTED for withdrawal, #23 CAP 0 Refills 10mg PO TID x 4 days, then 10mg PO BID x 4 days, then 10mg PO daily x 3 days, then stop. Clonidine (Clonidine) 0.1 Mg Tab 0.1 MG PO DIRECTED for Blood Pressure Management, #20 TAB 0 Refills 0.1mg PO TID x 3 days, then 0.1mg BID x 3 days, then 0.1mg daily x 3 days, then stop. Prednisone (21) 5 mg tab Dose Pack (Prednisone (21) 5 mg tab Dose Pack) 5 Mg Dspk 5 MG PO DIRECTED for Inflammation, #1 DSPK 0 Refills Folic Acid (Folic Acid) 1 Mg Tablet 1 MG PO DAILY for Nutritional Supplement, #30 TAB 0 Refills Levofloxacin (Levaquin) 750 Mg Tablet 750 MG PO Q24H for Infection, #5 TAB 0 Refills Metronidazole (Flagyl) 500 Mg Tab 500 MG PO Q8H for Infection, #15 TAB 0 Refills Multiple Vitamin (Thera/Beta-Carotene) 1 Tab Tab 1 TAB PO DAILY for Nutritional Supplement, #30 TAB 0 Refills Thiamine HCl (Gnp Vitamin B-1) 100 Mg Tab 100 MG PO DAILY for Nutritional Supplement, #30 TAB 0 Refills Luke Warren MD May 23, 2017 11:13
[2017-05-23 12:00] VITALS: BP 123/71; PULSE 111; RESP 18; TEMP 97.6; O2SAT 97
[2017-05-23] MEDS: LEVOFLOXACIN 750 MG TAB PO SCH (14:23)
== END 2017-05-23 14:36 | disposition home or self-care (01) | DRG 917 ==
LOC: NEPC 23:35 → NEDA 05-14 01:29 → HIMW 05-14 04:10 → N05A 05-21 00:45
PROVIDERS: ADMIT Family Medicine; ATTEND Family Medicine
DX: T40.601A Poisoning by unspecified narcotics, accidental (unintentional), initial encounter (principal); G92 Toxic encephalopathy; J69.0 Pneumonitis due to inhalation of food and vomit; J96.01 Acute respiratory failure with hypoxia; J96.02 Acute respiratory failure with hypercapnia; F10.239 Alcohol dependence with withdrawal, unspecified; N17.9 Acute kidney failure, unspecified; E44.0 Moderate protein-calorie malnutrition; Y92.9 Unspecified place or not applicable; F11.10 Opioid abuse, uncomplicated; J45.909 Unspecified asthma, uncomplicated; F31.9 Bipolar disorder, unspecified; F19.10 Other psychoactive substance abuse, uncomplicated; Z72.0 Tobacco use; Z78.1 Physical restraint status; F14.10 Cocaine abuse, uncomplicated
CPT/HCPCS: 31500; 36600; 70450; 71010; 80048; 80053; 80202; 80307; 82805; 82948; 83605; 83735; 84100; 84132; 85025; 85027; 85730; 87040; 87070; 87186; 87205; 87449; 87641; 93005; 94002; 94003; 94150; 94640; 94664; 94667; 94668; 96361; 96374; J0330; J0456; J0692; J1630; J1644; J2060; J2310; J2543; J2920; J3370; J3480; J7030; J7040; J7050